=== PATIENT | female | born 1975 | race Caucasian/White ===

== ENCOUNTER → 2017-08-12 08:52 | Outpatient (REF) | payer MEDICAID, SELFPAY ==
[2017-08-12 14:26] LABS: Basophils # 0.1 K/mm3 (0-0.2); Basophils % 0.8 % (0.1-2.0); Eosinophils # 0.1 K/mm3 (0.0-0.4); Eosinophils % 1.4 % (0.1-12.0); Hematocrit 40.9 % (37.0-47.0); Hemoglobin 13.1 g/dL (12.2-16.2); Lymphocytes # 1.9 K/mm3 (0.7-4.5); Lymphocytes % 21.5 K/mm3 (10-50); Mean Platelet Volume 8.6 fl (7.4-10.4); Monocytes # 0.5 K/mm3 (0.1-1.0); Monocytes % 5.6 % (1.7-9.3); Neutrophils # 6.1 K/mm3 (1.8-7.8); Neutrophils % 70.6 % (37.0-80.0); Platelet Count 326 K/mm3 (142-424); Red Blood Count 4.09 M/mm3 (4.20-5.40); Red Cell Distribution Width 13.3 % (11.5-17.5); White Blood Count 8.6 K/mm3 (4.8-10.8)
[2017-08-12 15:54] LABS: Alanine Aminotransferase 23 U/L (12-78); Albumin Level 4.1 gm/dL (3.4-5.0); Albumin/Globulin Ratio 1.2 (1.1-1.8); Alkaline Phosphatase 65 U/L (46-116); Aspartate Amino Transferase 12 U/L (15-37); Bilirubin,Total 0.2 mg/dL (0.2-1.0); Blood Urea Nitrogen 15 mg/dL (7-18); Calcium 9.1 mg/dL (8.5-10.1); Carbon Dioxide 28 mmol/L (21.0-32.0); Chol/HDL Ratio 2.6 (1-3.5); Cholesterol 161 mg/dL (140-200); Estimated Glomerular Filt Rate 109 ml/min (>60); Free T4 (Free Thyroxine) 0.94 ng/dl (0.76-1.46); GFR (African American) 131 ML/MIN (>60); Globulin 3.3 gm/dl (1.3-3.2); Glucose 125 mg/dL (74-106); HDL Cholesterol 61 mg/dL (29-89); LDL Cholesterol 91 mg/dL (0-130); Thyroid Stimulating Hormone 1.17 uIU/ml (0.358-3.740); Total Protein,Serum 7.4 gm/dL (6.4-8.2); Triglycerides 43 mg/dL (30-200); VLDL Cholesterol 9 mg/dL (0-40)
[2017-08-12 16:04] LABS: Amphetamine/Metha Screen,Urine Negative ng/mL (<1000); Barbiturates Screen,Urine Negative ng/mL (<200); Benzodiazepines Screen,Urine Negative ng/mL (200); Cannabinoid Screen,Urine Negative ng/mL (<50); Cocaine Screen,Urine Negative ng/g (<300); Methadone Screen,Urine Negative ng/mL (<300); Opiate Screen,Urine Negative ng/mL (<300); Phencyclidine Screen,Urine Negative ng/mL (<25)
[2017-08-12 18:13] LABS: Anion Gap 13.4 mEq/L (5-15); Chloride 105 mmol/L (98-107); Potassium 4.4 mmoL/L (3.5-5.1); Sodium 142 mmol/L (136-145)
[2017-08-12 19:18] LABS: Hemoglobin A1C 5.9 % (0.0-7.0)
[2017-08-13 10:39] LABS: Vitamin D 25 Hydroxy 11.5 ng/mL (30.0-100.0)
[2017-08-14 05:18] LABS: Hep A Ab, IgM Negative (Negative); Hepatitis B Core Antibody IgM Negative (Negative); Hepatitis B Surface Antigen Negative (Negative)
[2017-08-14 13:21] LABS: Hepatitis C Antibody <0.1 s/co ratio (0.0-0.9); Microalbumin, Urine 9.5 ug/mL (Not Estab.)
== END ==
LOC: LAB 08:52
PROVIDERS: Visit Provider Nurse Practitioner Family
DX: R53.83 Other fatigue (principal); Z79.899 Other long term (current) drug therapy
CPT/HCPCS: 80053; 80061; 80074; 80305; 82043; 82652; 83036; 84439; 84443; 85025

== ENCOUNTER → 2017-09-24 14:18 | Outpatient (REF) | payer MEDICAID, SELFPAY ==
[2017-09-24 18:48] LABS: Amphetamine/Metha Screen,Urine Negative ng/mL (<1000); Barbiturates Screen,Urine Negative ng/mL (<200); Benzodiazepines Screen,Urine Negative ng/mL (200); Cannabinoid Screen,Urine Negative ng/mL (<50); Cocaine Screen,Urine Negative ng/g (<300); Methadone Screen,Urine Negative ng/mL (<300); Opiate Screen,Urine Negative ng/mL (<300); Phencyclidine Screen,Urine Negative ng/mL (<25)
== END ==
LOC: LAB 14:18
PROVIDERS: Visit Provider Nurse Practitioner Family
DX: R53.83 Other fatigue (principal); Z79.899 Other long term (current) drug therapy
CPT/HCPCS: 80305

== ENCOUNTER → 2018-01-14 10:52 | Outpatient (REF) | payer MEDICAID, SELFPAY ==
[2018-01-14 14:49] LABS: Hemoglobin A1C 6.6 % (0.0-7.0)
[2018-01-15 10:23] LABS: Creatinine, Urine 69.5 mg/dL (Not Estab.); Microalbumin, Urine 13.6 ug/mL (Not Estab.)
[2018-01-15 12:16] LABS: Hep A Ab, IgM Negative (Negative); Hepatitis B Core Antibody IgM Negative (Negative); Hepatitis B Surface Antigen Negative (Negative)
[2018-01-15 17:13] LABS: Hepatitis C Antibody 0.1 s/co ratio (0.0-0.9)
== END ==
LOC: LAB 10:52
PROVIDERS: Visit Provider Nurse Practitioner Family
DX: E11.9 Type 2 diabetes mellitus without complications (principal); Z20.5 Contact with and (suspected) exposure to viral hepatitis
CPT/HCPCS: 80074; 82043; 82570; 83036

== ENCOUNTER → 2020-10-21 09:24 | Outpatient (CLI) | payer MEDICAID, SELFPAY ==
[2020-10-21 13:52] LABS: Basophils # 0.1 K/mm3 (0-0.2); Basophils % 1.4 % (0.1-2.0); Eosinophils # 0.2 K/mm3 (0.0-0.4); Eosinophils % 2.1 % (0.1-12.0); Hematocrit 44.7 % (37.0-47.0); Hemoglobin 14.4 g/dL (12.2-16.2); Lymphocytes # 1.9 K/mm3 (0.7-4.5); Mean Corpuscular HGB Conc 32.2 g/dL (31.8-35.4); Mean Corpuscular Hemoglobin 29.8 pg (27.0-31.2); Mean Corpuscular Volume 92.6 fl (81-99); Mean Platelet Volume 8.1 fl (7.4-10.4); Monocytes # 0.3 K/mm3 (0.1-1.0); Monocytes % 3.8 % (1.7-9.3); Neutrophils # 4.9 K/mm3 (1.8-7.8); Neutrophils % 66.7 % (37.0-80.0); Platelet Count 314 K/mm3 (142-424); Red Blood Count 4.83 M/mm3 (4.20-5.40); Red Cell Distribution Width 13.8 % (11.5-17.5); White Blood Count 7.4 K/mm3 (4.8-10.8)
[2020-10-21 13:59] LABS: Alanine Aminotransferase 31 U/L (12-78); Albumin/Globulin Ratio 1.3 (1.1-1.8); Alkaline Phosphatase 106 U/L (38-126); Anion Gap 10.7 mEq/L (5-15); Aspartate Amino Transferase 48 U/L (14-36); Bilirubin,Total 0.3 mg/dl (0.2-1.3); Blood Urea Nitrogen 11 mg/dl (7-17); Calcium 9.4 mg/dl (8.4-10.2); Carbon Dioxide 28 mmol/L (22.0-30.0); Chloride 98 mmol/L (98-107); Chol/HDL Ratio 2.6 (1-3.5); Cholesterol 151 mg/dl (140-200); Estimated Glomerular Filt Rate 107 ml/min (>60); GFR (African American) 130 ML/MIN (>60); Glucose 379 mg/dl (74-100); HDL Cholesterol 57 mg/dl (40-60); Potassium 4.7 mmoL/L (3.5-5.1); Sodium 132 mmol/L (136-145); Triglycerides 194 mg/dl (30-150); VLDL Cholesterol 39 mg/dL (0-40)
[2020-10-21 14:11] LABS: Direct LDL Cholesterol 61.24 mg/dL (100-129)
[2020-10-21 14:15] LABS: 25-OH Vitamin D, Total 21.6 ng/mL (30-100)
[2020-10-21 14:23] LABS: Hemoglobin A1C 12.6 % (4.0-6.0)
[2020-10-21 14:30] LABS: Thyroid Stimulating Hormone 1.93 uIU/mL (0.465-4.68)
[2020-10-21 14:31] LABS: Prothrombin Time 10.4 seconds (10.1-12.5)
[2020-10-21 14:32] LABS: INR 0.87 (0.9-1.1)
[2020-10-22 11:31] LABS: Hep A Ab, IgM Negative (Negative); Hep A Ab, Total Negative (Negative); Hep B Core Ab, Total Negative (Negative)
[2020-10-22 11:34] LABS: HIV Screen 4th Generation wRfx Non Reactive (Non Reactive); Hep B Surface Ab, Qual Reactive (.); Hepatitis B Surface Antigen Negative (Negative); Hepatitis C Antibody >11.0 s/co ratio (0.0-0.9)
[2020-10-23 22:03] LABS: HCV Genotype Charge YES; Hepatitis C Genotype 3 (.)
== END ==
PROVIDERS: Visit Provider Physician Assistant
DX: B19.20 Unspecified viral hepatitis C without hepatic coma (principal); E11.9 Type 2 diabetes mellitus without complications; I10 Essential (primary) hypertension; E55.9 Vitamin D deficiency, unspecified; Z79.84 Long term (current) use of oral hypoglycemic drugs; Z11.4 Encounter for screening for human immunodeficiency virus [HIV]
CPT/HCPCS: 36415; 80053; 80061; 82043; 82306; 83036; 84443; 85025; 85610; 86703; 86704; 86706; 86708; 87340; 87380; 87522; 87902; G0432

== ENCOUNTER → 2021-03-09 07:19 | Outpatient (CLI) | payer MEDICAID, SELFPAY ==
[2021-03-09 13:11] LABS: Basophils # 0.1 K/mm3 (0-0.2); Basophils % 1.6 % (0.1-2.0); Eosinophils # 0.2 K/mm3 (0.0-0.4); Eosinophils % 2.9 % (0.1-12.0); Hematocrit 43.2 % (37.0-47.0); Hemoglobin 13.9 g/dL (12.2-16.2); Lymphocytes # 2.3 K/mm3 (0.7-4.5); Lymphocytes % 28.9 % (10-50); Mean Corpuscular HGB Conc 32.2 g/dL (31.8-35.4); Mean Corpuscular Hemoglobin 31.5 pg (27.0-31.2); Mean Corpuscular Volume 97.8 fl (81-99); Mean Platelet Volume 9.4 fl (7.4-10.4); Monocytes # 0.4 K/mm3 (0.1-1.0); Monocytes % 4.7 % (1.7-9.3); Neutrophils # 4.9 K/mm3 (1.8-7.8); Neutrophils % 61.9 % (37.0-80.0); Platelet Count 326 K/mm3 (142-424); Red Blood Count 4.42 M/mm3 (4.20-5.40)
[2021-03-09 13:14] LABS: Chloride 100 mmol/L (98-107); Potassium 4.3 mmoL/L (3.5-5.1); Sodium 135 mmol/L (136-145)
[2021-03-09 13:16] LABS: Alanine Aminotransferase 25 U/L (12-78); Alkaline Phosphatase 84 U/L (38-126); Aspartate Amino Transferase 35 U/L (14-36); Blood Urea Nitrogen 17 mg/dl (7-17); Estimated Glomerular Filt Rate 107 ml/min (>60); GFR (African American) 129 ML/MIN (>60)
[2021-03-09 13:17] LABS: Albumin Level 3.9 g/dl (3.5-5.0); Albumin/Globulin Ratio 1.3 (1.1-1.8); Anion Gap 14.3 mEq/L (5-15); Bilirubin,Total < 0.1 mg/dl (0.2-1.3); Calcium 8.8 mg/dl (8.4-10.2); Carbon Dioxide 25 mmol/L (22.0-30.0); Globulin 2.9 g/dL (1.3-3.2); Glucose 225 mg/dl (74-100); Total Protein,Serum 6.8 g/dl (6.3-8.2)
[2021-03-09 13:25] LABS: Prothrombin Time 10.4 seconds (10.1-12.5)
[2021-03-09 13:32] LABS: INR 0.87 (0.9-1.1)
[2021-03-10 13:09] LABS: HIV Screen 4th Generation wRfx Non Reactive (Non Reactive); Hep A Ab, IgM Negative (Negative); Hep A Ab, Total Negative (Negative); Hep B Core Ab, Total Negative (Negative); Hep B Surface Ab, Qual Reactive (.); Hepatitis B Surface Antigen Negative (Negative); Hepatitis C Antibody >11.0 s/co ratio (0.0-0.9)
[2021-03-14 18:16] LABS: ALT (SGPT) P5P 29 IU/L (0-40); Alpha 2-Macroglobulins, Qn 207 mg/dL (110-276); Apolipoprotein A-1 149 mg/dL (116-209); Bilirubin, Total 0.1 mg/dL (0.0-1.2); Fibrosis Score 0.07 (0.00-0.21); GGT 71 IU/L (0-60); Haptoglobin 163 mg/dL (42-296); Necroinflammat Activity Grade A0-No activity (.)
== END ==
PROVIDERS: Visit Provider Nurse Practitioner Family
DX: B19.20 Unspecified viral hepatitis C without hepatic coma (principal); Z11.4 Encounter for screening for human immunodeficiency virus [HIV]
CPT/HCPCS: 36415; 80053; 81596; 85025; 85610; 86703; 86704; 86706; 86708; 87340; 87380; 87522; G0432

== ENCOUNTER → 2021-03-27 19:38 | Outpatient (CLI) | payer MEDICAID, SELFPAY ==
[2021-03-27 20:40] LABS: Basophils # 0.1 K/mm3 (0-0.2); Eosinophils # 0.2 K/mm3 (0.0-0.4); Eosinophils % 2.3 % (0.1-12.0); Hematocrit 41.6 % (37.0-47.0); Hemoglobin 13.7 g/dL (12.2-16.2); Lymphocytes # 1.9 K/mm3 (0.7-4.5); Mean Corpuscular HGB Conc 32.8 g/dL (31.8-35.4); Mean Corpuscular Hemoglobin 30.8 pg (27.0-31.2); Mean Platelet Volume 8.8 fl (7.4-10.4); Monocytes # 0.4 K/mm3 (0.1-1.0); Monocytes % 5.5 % (1.7-9.3); Neutrophils % 62.2 % (37.0-80.0); Platelet Count 380 K/mm3 (142-424); Red Blood Count 4.43 M/mm3 (4.20-5.40); Red Cell Distribution Width 13.3 % (11.5-17.5); White Blood Count 6.5 K/mm3 (4.8-10.8)
[2021-03-27 21:19] LABS: Alanine Aminotransferase 24 U/L (12-78); Albumin Level 3.8 g/dl (3.5-5.0); Albumin/Globulin Ratio 1.2 (1.1-1.8); Alkaline Phosphatase 79 U/L (38-126); Anion Gap 9.6 mEq/L (5-15); Aspartate Amino Transferase 29 U/L (14-36); Bilirubin,Total 0.3 mg/dl (0.2-1.3); Blood Urea Nitrogen 9 mg/dl (7-17); Calcium 9.7 mg/dl (8.4-10.2); Carbon Dioxide 30 mmol/L (22.0-30.0); Chloride 99 mmol/L (98-107); Chol/HDL Ratio 2.4 (1-3.5); Cholesterol 113 mg/dl (140-200); Estimated Glomerular Filt Rate 170 ml/min (>60); GFR (African American) 206 ML/MIN (>60); Globulin 3.2 g/dL (1.3-3.2); Glucose 205 mg/dl (74-100); HDL Cholesterol 48 mg/dl (40-60); Potassium 4.6 mmoL/L (3.5-5.1); Sodium 134 mmol/L (136-145); Triglycerides 98 mg/dl (30-150); VLDL Cholesterol 20 mg/dL (0-40)
[2021-03-27 21:35] LABS: Erythrocyte Sedimentation Rate 21 mm/hr (0-20)
[2021-03-27 21:37] LABS: C-Reactive Protein 3.9 mg/L (0-4); Direct LDL Cholesterol 44.68 mg/dL (100-129)
[2021-03-27 22:06] LABS: 25-OH Vitamin D, Total 35.3 ng/mL (30-100)
[2021-03-27 22:20] LABS: Thyroid Stimulating Hormone 1.88 uIU/mL (0.465-4.68)
[2021-03-29 12:37] LABS: RA Latex Turbid. <10.0 IU/mL (0.0-13.9)
[2021-03-29 14:27] LABS: Anti-Centromere B Antibodies <0.2 AI (0.0-0.9); Anti-DNA (DS) Ab Qn <1 IU/mL (0-9); Anti-Jo-1 <0.2 AI (0.0-0.9); Anti-Smith Antibody <0.2 AI (0.0-0.9); Antichromatin Antibodies <0.2 AI (0.0-0.9); Antiscleroderma-70 Antibodies <0.2 AI (0.0-0.9); RNP Antibodies <0.2 AI (0.0-0.9); Sjogren's Anti-SS-A <0.2 AI (0.0-0.9); Sjogren's Anti-SS-B <0.2 AI (0.0-0.9)
[2021-03-31 00:08] LABS: Anti-Cyclic Citrullinated Pept 4 units (0-19)
== END ==
PROVIDERS: Visit Provider Physician Assistant
DX: M25.50 Pain in unspecified joint (principal); R60.9 Edema, unspecified; E66.9 Obesity, unspecified; Z68.35 Body mass index [BMI] 35.0-35.9, adult
CPT/HCPCS: 80053; 80061; 82306; 83036; 84443; 85025; 85651; 86140; 86200; 86225; 86235; 86431

== ENCOUNTER → 2021-06-29 07:20 | Outpatient (CLI) | payer MEDICAID, SELFPAY ==
[2021-06-29 14:44] LABS: Basophils # 0.1 K/mm3 (0-0.2); Basophils % 1.2 % (0.1-2.0); Eosinophils # 0.2 K/mm3 (0.0-0.4); Eosinophils % 2.7 % (0.1-12.0); Hemoglobin 13.3 g/dL (12.2-16.2); Lymphocytes # 1.8 K/mm3 (0.7-4.5); Lymphocytes % 29.5 % (10-50); Mean Corpuscular HGB Conc 32.6 g/dL (31.8-35.4); Mean Corpuscular Hemoglobin 30.4 pg (27.0-31.2); Mean Corpuscular Volume 93.4 fl (81-99); Mean Platelet Volume 8.8 fl (7.4-10.4); Monocytes # 0.3 K/mm3 (0.1-1.0); Monocytes % 5.2 % (1.7-9.3); Neutrophils # 3.7 K/mm3 (1.8-7.8); Neutrophils % 61.4 % (37.0-80.0); Platelet Count 317 K/mm3 (142-424); Red Blood Count 4.39 M/mm3 (4.20-5.40); Red Cell Distribution Width 13.9 % (11.5-17.5); White Blood Count 6.1 K/mm3 (4.8-10.8)
[2021-06-29 14:54] LABS: Prothrombin Time 10.3 seconds (10.1-12.5)
[2021-06-29 15:25] LABS: Alanine Aminotransferase 32 U/L (12-78); Albumin Level 3.8 g/dl (3.5-5.0); Albumin/Globulin Ratio 1.5 (1.1-1.8); Alkaline Phosphatase 69 U/L (38-126); Anion Gap 12.4 mEq/L (5-15); Aspartate Amino Transferase 51 U/L (14-36); Bilirubin,Total 0.2 mg/dl (0.2-1.3); Blood Urea Nitrogen 12 mg/dl (7-17); Calcium 8.9 mg/dl (8.4-10.2); Carbon Dioxide 26 mmol/L (22.0-30.0); Chloride 98 mmol/L (98-107); Estimated Glomerular Filt Rate 107 ml/min (>60); GFR (African American) 129 ML/MIN (>60); Globulin 2.5 g/dL (1.3-3.2); Glucose 266 mg/dl (74-100); Potassium 3.4 mmoL/L (3.5-5.1); Sodium 133 mmol/L (136-145); Total Protein,Serum 6.3 g/dl (6.3-8.2)
[2021-06-29 16:39] LABS: Hemoglobin A1C 11.1 % (4.0-6.0)
[2021-06-30 12:20] LABS: HIV Screen 4th Generation wRfx Non Reactive (Non Reactive); Hep A Ab, IgM Negative (Negative); Hep A Ab, Total Negative (Negative); Hep B Core Ab, Total Negative (Negative); Hep B Surface Ab, Qual Reactive (.); Hepatitis B Surface Antigen Negative (Negative); Hepatitis C Antibody >11.0 s/co ratio (0.0-0.9)
[2021-07-02 03:38] LABS: ALT (SGPT) P5P 29 IU/L (0-40); Alpha 2-Macroglobulins, Qn 205 mg/dL (110-276); Apolipoprotein A-1 154 mg/dL (116-209); Bilirubin, Total 0.1 mg/dL (0.0-1.2); Fibrosis Score 0.07 (0.00-0.21); GGT 69 IU/L (0-60); Haptoglobin 138 mg/dL (42-296); Necroinflammat Activity Grade A0-No activity (.)
[2021-07-05 13:11] LABS: HCV Genotype Charge YES; Hepatitis C Genotype 3 (.)
== END ==
PROVIDERS: Visit Provider Nurse Practitioner Family
DX: B19.20 Unspecified viral hepatitis C without hepatic coma (principal); E11.9 Type 2 diabetes mellitus without complications; Z79.84 Long term (current) use of oral hypoglycemic drugs; Z11.4 Encounter for screening for human immunodeficiency virus [HIV]
CPT/HCPCS: 36415; 80053; 81596; 83036; 85025; 85610; 86703; 86704; 86706; 86708; 87340; 87380; 87522; 87902; G0432

== ENCOUNTER → 2021-07-27 07:49 | Outpatient (CLI) | payer MEDICAID, SELFPAY ==
[2021-07-27 16:17] LABS: Urine Pregnancy, HCG Qual. Negative (Negative)
== END ==
PROVIDERS: Visit Provider Nurse Practitioner Family
DX: B19.20 Unspecified viral hepatitis C without hepatic coma (principal)
CPT/HCPCS: 81025

== ENCOUNTER → 2021-09-26 10:51 | Outpatient (CLI) | payer MEDICAID, SELFPAY ==
[2021-09-26 14:40] LABS: Chloride 98 mmol/L (98-107); Potassium 4.9 mmoL/L (3.5-5.1); Sodium 132 mmol/L (136-145)
[2021-09-26 14:42] LABS: Alanine Aminotransferase 21 U/L (12-78); Aspartate Amino Transferase 26 U/L (14-36); Blood Urea Nitrogen 14 mg/dl (7-17); Estimated Glomerular Filt Rate 107 ml/min (>60); GFR (African American) 129 ML/MIN (>60)
[2021-09-26 14:43] LABS: Albumin Level 3.7 g/dl (3.5-5.0); Albumin/Globulin Ratio 1.3 (1.1-1.8); Alkaline Phosphatase 76 U/L (38-126); Anion Gap 9.9 mEq/L (5-15); Bilirubin,Total 0.3 mg/dl (0.2-1.3); Calcium 8.6 mg/dl (8.4-10.2); Carbon Dioxide 29 mmol/L (22.0-30.0); Globulin 2.9 g/dL (1.3-3.2); Glucose 356 mg/dl (74-100); Total Protein,Serum 6.6 g/dl (6.3-8.2)
[2021-09-28 03:37] LABS: Hepatitis C Antibody >11.0 s/co ratio (0.0-0.9)
== END ==
PROVIDERS: Visit Provider Nurse Practitioner Family
DX: B18.2 Chronic viral hepatitis C (principal)
CPT/HCPCS: 36415; 80053; 87380; 87522; 87902

== ENCOUNTER → 2022-02-20 08:22 | Outpatient (CLI) | payer MEDICAID, SELFPAY ==
[2022-02-20 18:20] LABS: Basophils # 0.1 K/mm3 (0-0.2); Basophils % 1.2 % (0.1-2.0); Eosinophils # 0.2 K/mm3 (0.0-0.4); Eosinophils % 2.8 % (0.1-12.0); Hematocrit 43.1 % (37.0-47.0); Hemoglobin 13.5 g/dL (12.2-16.2); Lymphocytes # 1.7 K/mm3 (0.7-4.5); Lymphocytes % 22.2 % (10-50); Mean Corpuscular HGB Conc 31.4 g/dL (31.8-35.4); Mean Corpuscular Hemoglobin 30.7 pg (27.0-31.2); Mean Corpuscular Volume 97.8 fl (81-99); Mean Platelet Volume 10.3 fl (7.4-10.4); Monocytes # 0.4 K/mm3 (0.1-1.0); Monocytes % 5.3 % (1.7-9.3); Neutrophils # 5.1 K/mm3 (1.8-7.8); Neutrophils % 68.5 % (37.0-80.0); Platelet Count 403 K/mm3 (142-424); Red Cell Distribution Width 13.7 % (11.5-17.5); White Blood Count 7.4 K/mm3 (4.8-10.8)
[2022-02-20 18:47] LABS: Chloride 101 mmol/L (98-107); Potassium 4.9 mmoL/L (3.5-5.1); Sodium 138 mmol/L (136-145)
[2022-02-20 18:49] LABS: Blood Urea Nitrogen 15 mg/dl (7-17); Estimated Glomerular Filt Rate 106 ml/min (>60); GFR (African American) 129 ML/MIN (>60)
[2022-02-20 18:50] LABS: Alanine Aminotransferase 23 U/L (12-78); Albumin Level 4.3 g/dl (3.5-5.0); Albumin/Globulin Ratio 1.3 (1.1-1.8); Alkaline Phosphatase 89 U/L (38-126); Anion Gap 15.9 mEq/L (5-15); Aspartate Amino Transferase 31 U/L (14-36); Carbon Dioxide 26 mmol/L (22.0-30.0); Cholesterol 164 mg/dl (140-200); Globulin 3.2 g/dL (1.3-3.2); Total Protein,Serum 7.5 g/dl (6.3-8.2); Triglycerides 132 mg/dl (30-150); VLDL Cholesterol 26 mg/dL (0-40)
[2022-02-20 18:51] LABS: Calcium 10.2 mg/dl (8.4-10.2); Chol/HDL Ratio 2.7 (1-3.5); Glucose 232 mg/dl (74-100); HDL Cholesterol 61 mg/dl (40-60)
[2022-02-20 18:53] LABS: Bilirubin,Total < 0.1 mg/dl (0.2-1.3)
[2022-02-20 19:08] LABS: 25-OH Vitamin D, Total 21.3 ng/mL (30-100)
[2022-02-20 19:21] LABS: Thyroid Stimulating Hormone 0.33 uIU/mL (0.465-4.68)
[2022-02-20 20:45] LABS: Microalbumin < 6.000 mg/L (0-16.7)
[2022-02-20 20:51] LABS: Vitamin B12 345 pg/mL (239-931)
[2022-02-22 08:29] LABS: Direct LDL Cholesterol 78 mg/dL (100-129)
== END ==
PROVIDERS: PCP Physician Assistant; Visit Provider Physician Assistant
DX: E11.9 Type 2 diabetes mellitus without complications (principal); E55.9 Vitamin D deficiency, unspecified; Z79.4 Long term (current) use of insulin; Z79.899 Other long term (current) drug therapy
CPT/HCPCS: 80053; 80061; 82043; 82306; 82607; 83036; 84443; 84681; 85025

== ENCOUNTER → 2022-02-27 10:25 | Outpatient (CLI) | payer MEDICAID, SELFPAY ==
--- NOTE | 2022-02-27 10:29 | CT_ITS ---
FINAL REPORT CLINICAL HISTORY: umbilical hernia with pain FINDINGS: Axial CT images of the abdomen and pelvis were obtained without intravenous contrast. Coronal reformatted images were also obtained.This study was performed with techniques to keep radiation doses as low as reasonably achievable (ALARA). Individualized dose reduction techniques using automated exposure control or adjustment of mA and/or kV according to the patient's size were employed. Abdomen: The lung bases are clear. There is no evidence of renal stone or hydronephrosis. There has been cholecystectomy. The liver, spleen and pancreas have an unremarkable, unenhanced appearance. A 16 mm right adrenal mass is consistent with a myelolipoma. No inflammatory process is identified. There is an umbilical hernia containing fat only. Hernia sac measures 44 mm with the orifice measuring 26 mm in transverse dimensions. There is mild vascular calcification. Pelvis: Images of the pelvis reveal no evidence of ureteral dilation or ureteral stone.No mass or abnormal fluid collection is identified. The appendix is normal. There is degenerative change of the lumbar spine with 10 mm of anterolisthesis of L4 on L5. IMPRESSION: Umbilical hernia containing fat only. No acute intra-abdominal process. Reviewed, Interpreted and Dictated by Basil Corrales III, MD Transcribed by Miguel Palma Authenticated and [facility]
== END ==
PROVIDERS: PCP Physician Assistant; Visit Provider Physician Assistant
DX: K42.9 Umbilical hernia without obstruction or gangrene (principal)
CPT/HCPCS: 74176

== ENCOUNTER → 2022-12-05 14:20 | Outpatient (CLI) | payer MEDICAID, SELFPAY ==
[2022-12-05 19:52] LABS: Basophils % 0.4 % (0.1-2.0); Eosinophils # 0.2 K/mm3 (0.0-0.4); Hematocrit 42.4 % (37.0-47.0); Lymphocytes # 2.2 K/mm3 (0.7-4.5); Lymphocytes % 26.6 % (10-50); Mean Corpuscular Hemoglobin 30.4 pg (27.0-31.2); Mean Corpuscular Volume 92.3 fl (81-99); Mean Platelet Volume 9.5 fl (7.4-10.4); Monocytes # 0.5 K/mm3 (0.1-1.0); Monocytes % 5.9 % (1.7-9.3); Neutrophils # 5.4 K/mm3 (1.8-7.8); Neutrophils % 65.1 % (37.0-80.0); Platelet Count 331 K/mm3 (142-424); Red Blood Count 4.59 M/mm3 (4.20-5.40); Red Cell Distribution Width 14.1 % (11.5-17.5); White Blood Count 8.3 K/mm3 (4.8-10.8)
[2022-12-05 19:57] LABS: Alanine Aminotransferase 47 U/L (12-78); Albumin Level 4.3 g/dl (3.5-5.0); Albumin/Globulin Ratio 1.4 (1.1-1.8); Alkaline Phosphatase 85 U/L (38-126); Anion Gap 15.1 mEq/L (5-15); Aspartate Amino Transferase 49 U/L (14-36); Blood Urea Nitrogen 10 mg/dl (7-17); Calcium 8.8 mg/dl (8.4-10.2); Carbon Dioxide 28 mmol/L (22.0-30.0); Chloride 100 mmol/L (98-107); Chol/HDL Ratio 2.4 (1-3.5); Cholesterol 167 mg/dl (140-200); Estimated Glomerular Filt Rate 106 ml/min (>60); GFR (African American) 129 ML/MIN (>60); Glucose 99 mg/dl (74-100); HDL Cholesterol 69 mg/dl (40-60); Potassium 4.1 mmoL/L (3.5-5.1); Sodium 139 mmol/L (136-145); Total Protein,Serum 7.3 g/dl (6.3-8.2); Triglycerides 203 mg/dl (30-150); VLDL Cholesterol 41 mg/dL (0-40)
[2022-12-05 19:59] LABS: Bilirubin,Total 0.1 mg/dl (0.2-1.3)
[2022-12-05 20:08] LABS: Direct LDL Cholesterol 69.93 mg/dL (100-129)
[2022-12-05 20:12] LABS: Creatinine,Urine Random 137 mg/dL (Not Estab.)
[2022-12-05 20:14] LABS: Microalbumin/Creatinine Ratio 32.2
[2022-12-05 20:15] LABS: 25-OH Vitamin D, Total 27.2 ng/mL (30-100)
[2022-12-05 20:28] LABS: Thyroid Stimulating Hormone 1.82 uIU/mL (0.465-4.68)
[2022-12-05 21:03] LABS: Hemoglobin A1C 9.2 % (4.0-6.0)
== END ==
PROVIDERS: PCP Physician Assistant; Visit Provider Physician Assistant
DX: E11.9 Type 2 diabetes mellitus without complications (principal); I10 Essential (primary) hypertension; E55.9 Vitamin D deficiency, unspecified; Z79.4 Long term (current) use of insulin; Z79.899 Other long term (current) drug therapy
CPT/HCPCS: 80053; 80061; 82043; 82306; 82570; 83036; 84443; 85025

== ENCOUNTER 2023-09-11 15:12 | Outpatient (CLI) | payer MEDICAID, SELFPAY ==
--- NOTE | 2023-09-11 15:13 | CA_ITS ---
FINAL REPORT TECHNIQUE: Multiple transverse and longitudinal images were performed of the right femoral-popliteal deep venous system with augmentation and compression maneuvers. CLINICAL HISTORY: RLE edema x 3 days. No trauma, no pain. HTN, obesity, HLD, DM, obesity. 81 mg ASA daily. FINDINGS: Right lower extremity duplex ultrasound demonstrates normal flow in the deep venous system. There is no abnormal echogenicity to suggest thrombus. There is normal compression and augmentation. IMPRESSION: No evidence of right DVT. Reviewed, Interpreted and Dictated by Manolo Mason MD Transcribed by Joslyn Davies Authenticated and [facility]
== END 2023-09-11 23:59 ==
PROVIDERS: PCP Physician Assistant; Visit Provider Physician Assistant
DX: M79.661 Pain in right lower leg (principal); M79.89 Other specified soft tissue disorders
CPT/HCPCS: 93971

== ENCOUNTER 2023-10-02 16:15 | Outpatient (CLI) | payer MEDICAID, SELFPAY ==
[2023-10-02 18:26] LABS: Basophils # 0.1 K/mm3 (0-0.2); Basophils % 0.6 % (0.1-2.0); Eosinophils # 0.2 K/mm3 (0.0-0.4); Eosinophils % 1.7 % (0.1-12.0); Hematocrit 44.1 % (37.0-47.0); Hemoglobin 13.9 g/dL (12.2-16.2); Lymphocytes # 3.9 K/mm3 (0.7-4.5); Lymphocytes % 29.4 % (10-50); Mean Corpuscular HGB Conc 31.5 g/dL (31.8-35.4); Mean Corpuscular Hemoglobin 31.4 pg (27.0-31.2); Mean Corpuscular Volume 99.7 fl (81-99); Mean Platelet Volume 8.7 fl (7.4-10.4); Monocytes # 0.6 K/mm3 (0.1-1.0); Monocytes % 4.5 % (1.7-9.3); Neutrophils # 8.6 K/mm3 (1.8-7.8); Neutrophils % 63.8 % (37.0-80.0); Platelet Count 415 K/mm3 (142-424); Red Blood Count 4.42 M/mm3 (4.20-5.40); Red Cell Distribution Width 14.5 % (11.5-17.5); White Blood Count 13.4 K/mm3 (4.8-10.8)
[2023-10-02 18:32] LABS: Creatinine,Urine Random 14 mg/dL (Not Estab.)
[2023-10-02 18:34] LABS: Microalbumin/Creatinine Ratio 51.4
[2023-10-02 18:39] LABS: Alanine Aminotransferase 47 U/L (12-78); Albumin Level 4.3 g/dl (3.5-5.0); Albumin/Globulin Ratio 1.5 (1.1-1.8); Alkaline Phosphatase 141 U/L (38-126); Anion Gap 11.9 mEq/L (5-15); Aspartate Amino Transferase 62 U/L (14-36); Bilirubin,Total 0.4 mg/dl (0.2-1.3); Blood Urea Nitrogen 11 mg/dl (7-17); Calcium 9.2 mg/dl (8.4-10.2); Carbon Dioxide 29 mmol/L (22.0-30.0); Chloride 105 mmol/L (98-107); Chol/HDL Ratio 2.8 (1-3.5); Cholesterol 127 mg/dl (140-200); Estimated Glomerular Filt Rate 106 ml/min (>60); GFR (African American) 128 ML/MIN (>60); Globulin 2.9 g/dL (1.3-3.2); Glucose 63 mg/dl (74-100); HDL Cholesterol 46 mg/dl (40-60); Potassium 3.9 mmoL/L (3.5-5.1); Sodium 142 mmol/L (136-145); Total Protein,Serum 7.2 g/dl (6.3-8.2); Triglycerides 87 mg/dl (30-150); VLDL Cholesterol 17 mg/dL (0-40)
[2023-10-02 18:55] LABS: Direct LDL Cholesterol 59.39 mg/dL (100-129)
[2023-10-02 19:04] LABS: Hemoglobin A1C 6.3 % (4.0-6.0)
[2023-10-02 19:07] LABS: Thyroid Stimulating Hormone 1.92 uIU/mL (0.465-4.68)
[2023-10-02 19:26] LABS: Vitamin B12 492 pg/mL (239-931)
[2023-10-02 20:51] LABS: Ferritin 30.4 ng/ml (6.24-137)
[2023-10-02 21:48] LABS: 25-OH Vitamin D, Total 14.7 ng/mL (30-100)
== END 2023-10-02 23:59 | disposition home or self-care (01) ==
LOC: LAB.DROPOF 10-03 16:15
PROVIDERS: PCP Physician Assistant; Visit Provider Physician Assistant
DX: E11.49 Type 2 diabetes mellitus with other diabetic neurological complication (principal); E55.9 Vitamin D deficiency, unspecified; I50.9 Heart failure, unspecified; Z68.32 Body mass index [BMI] 32.0-32.9, adult; Z98.84 Bariatric surgery status; Z79.4 Long term (current) use of insulin; Z79.84 Long term (current) use of oral hypoglycemic drugs
CPT/HCPCS: 80053; 80061; 82043; 82306; 82570; 82607; 82728; 83036; 84443; 85025

== ENCOUNTER 2023-10-25 08:29 | Outpatient (CLI) | payer MEDICAID, SELFPAY ==
--- NOTE | 2023-10-25 08:30 | CA_ITS ---
APPROVED REPORT EXAM: Comprehensive 2D, Doppler, and color-flow Echocardiogram Clerical Support Specialist: CAROLE Holt, RVS Ht: 5 ft 7 in Wt: 230lbs BSA: 2.15 BP: 160/93 mmHg Indications: HTN, Abn EKG, Edema, Obesity, Hep-c, DM 2D Dimensions Left Atrium 4.56 cm LA Volume 78.50 mL LA Volume Index 35.70 mL/m2 (M/F) 16-34 M-Mode Dimensions RVDd 2.55 cm (0.9-2.6) LA Diam 4.04 cm (1.9-4.0) LVDd 5.66 cm (3.5-5.7) LVDs 3.80 cm (3.5-5.7) IVSd 1.10 cm (0.6-1.1) PWd 1.06 cm (0.6-1.1) EF (Teich) 60.60% EPSs 0.88 cm FS 32.90% EDV (Teich) 157.50 mL TAPSE 2.52 (<1.7) ESV (Teich) 62.00 mL LV Diastology E Decel Time 200 (160-240 msec) E/A Ratio 1.90 MED A' 9.70 cm/s LAT A' 7.20 cm/s Aortic Valve APPLE Index 1.00 cm2/m2 AoV Peak Nikolay. 121.0 (50-130 cm/s) AO Peak GR. 5.90 mmHg AO Mean GR. 3.00 (<5 mmHg) AO VTI 26.1 (18-25 cm) APPLE (VTI) 2.19 (2.5-4.5 cm2) Mitral Valve MV A Velocity 48.0 (40-130 cm/s) E/A Ratio 1.90 MV Mean Gr. 1.40 (<2mmHg) MV PHT 40.0 ms Pulmonary Valve PV Peak Velocity 66.0 (50-150 cm/s) Tricuspid Valve TR P. Velocity 210.00 cm/s RAP Estimate 10.00 mmHg RVSP 27.70 mmHg Left Ventricle The left ventricle is normal size. The left ventricular systolic function is low normal. There is normal left ventricular wall thickness. There is borderline global hypokinesis present. The left ventricular diastolic function is normal. LVEF is 50%. Right Ventricle The right ventricle is normal size. The right ventricular systolic function is normal. Atria Left atrium is mildly dilated. The right atrium size is normal. The interatrial septum is not well-visualized. Aortic Valve The aortic valve opens well. There is no aortic valvular stenosis. No aortic regurgitation is present. Mitral Valve The mitral valve is normal in structure. No evidence of mitral valve stenosis. Mild tricuspid regurgitation. Tricuspid Valve The tricuspid valve leaflets are thin and pliable. Trace tricuspid regurgitation. There is insufficient TR jet to estimate RVSP. Pulmonic Valve The pulmonary valve is normal in structure. Trace pulmonic regurgitation. Great Vessels The aortic root is normal in size. The ascending aorta is not well-visualized. IVC is normal in size and collapses >50% with inspiration. Pericardium There is no pericardial effusion. Other Information Study Quality: Fair Conclusion Borderline global hypokinesis with low normal LV systolic function (LVEF 50%). Mild LA dilation. Mild MR. In the setting of borderline global hypokinesis, further evaluation to accurately estimate LVEF is recommended with outpatient cardiac MRI (cardiomyopathy protocol). Electronically signed by : Ml Dempsey MD 10/28/2023 13:28:17
--- NOTE | 2023-10-25 08:30 | CA_ITS ---
FINAL REPORT TECHNIQUE: Grayscale, color Doppler and duplex Doppler ultrasound of the kidneys, aorta and renal arteries was performed. Multiple velocities were measured. CLINICAL HISTORY: HTN/abnl ecg, Obesity, DM, Hep-C COMPARISON: None FINDINGS: Aorta velocity: 93.2 cm/sec Right kidney: 11.5 cm. No evidence of hydronephrosis or mass. Right intrarenal RI: 0.73 Right renal artery velocity: 160 cm/sec. Right RAR (Renal artery-Aortic Ratio): 1.7 Left Kidney: 11.2 cm. No evidence of hydronephrosis or mass. Left intrarenal RI: 0.71 Left renal artery velocity: 181 cm/sec. Left RAR (Renal Artery-Aortic Ratio): 1.9 IMPRESSION: No evidence of significant renal artery stenosis in the right renal artery. Less than 60% stenosis in the left renal artery CT angiogram or postcontrast MR angiogram is suggested for evaluation of possible renal artery stenosis. Reviewed, Interpreted and Dictated by Basil Corrales III, MD Transcribed by Kathleen Corona Authenticated and [facility]
--- NOTE | 2023-10-25 09:17 | US_ITS ---
FINAL REPORT CLINICAL HISTORY: R94.31 - Abnormal electrocardiogram ECG EKG COMPARISON: None FINDINGS: RENAL ULTRASOUND: The right kidney measures 12.8 cm in sagittal length. No evidence of hydronephrosis or mass is seen. The left kidney measures 11.8 cm in sagittal length. No evidence of hydronephrosis or mass is seen. IMPRESSION: Unremarkable renal ultrasound. Reviewed, Interpreted and Dictated by Basil Corrales III, MD Transcribed by Kathleen Corona Authenticated and [facility]
== END 2023-10-25 23:59 | disposition home or self-care (01) ==
LOC: RT 08:30
PROVIDERS: PCP Physician Assistant; Visit Provider Nurse Practitioner
DX: R94.31 Abnormal electrocardiogram [ECG] [EKG]; I50.9 Heart failure, unspecified; E11.9 Type 2 diabetes mellitus without complications; Z79.4 Long term (current) use of insulin; I70.1 Atherosclerosis of renal artery; F17.210 Nicotine dependence, cigarettes, uncomplicated
CPT/HCPCS: 76770; 93306; 93976

== ENCOUNTER 2024-01-22 14:26 | Outpatient (CLI) | payer MEDICAID, SELFPAY ==
[2024-01-22 15:49] LABS: Anion Gap 11.6 mEq/L (5-15); Blood Urea Nitrogen 10 mg/dl (7-17); Calcium 9.4 mg/dl (8.4-10.2); Carbon Dioxide 32 mmol/L (22.0-30.0); Chloride 103 mmol/L (98-107); Estimated Glomerular Filt Rate 131 ml/min (>60); GFR (African American) 158 ML/MIN (>60); Glucose 122 mg/dl (74-100); Potassium 4.6 mmoL/L (3.5-5.1); Sodium 142 mmol/L (136-145)
== END 2024-01-22 23:59 | disposition home or self-care (01) ==
LOC: LAB 14:27
PROVIDERS: PCP Physician Assistant; Visit Provider Internal Medicine
DX: I50.21 Acute systolic (congestive) heart failure (principal); E11.9 Type 2 diabetes mellitus without complications; Z79.4 Long term (current) use of insulin; Z79.84 Long term (current) use of oral hypoglycemic drugs; F17.290 Nicotine dependence, other tobacco product, uncomplicated
CPT/HCPCS: 36415; 80048

== ENCOUNTER → 2024-02-28 12:37 | Outpatient (CLI) | payer MEDICAID, SELFPAY | LOC: SL 12:38 | PROVIDERS: PCP Internal Medicine; Visit Provider Internal Medicine | DX: G47.33 Obstructive sleep apnea (adult) (pediatric) (principal); G47.36 Sleep related hypoventilation in conditions classified elsewhere | CPT/HCPCS: G0399 ==

== ENCOUNTER 2024-04-08 18:39 | Outpatient (CLI) | payer MEDICAID, SELFPAY ==
[2024-04-08 19:06] LABS: Basophils # 0.1 K/mm3 (0-0.2); Eosinophils # 0.2 K/mm3 (0.0-0.4); Hematocrit 41.9 % (37.0-47.0); Hemoglobin 13.6 g/dL (12.2-16.2); Lymphocytes % 28.8 % (10-50); Mean Corpuscular HGB Conc 32.5 g/dL (31.8-35.4); Mean Corpuscular Hemoglobin 31.6 pg (27.0-31.2); Mean Corpuscular Volume 97.2 fl (81-99); Mean Platelet Volume 8.7 fl (7.4-10.4); Monocytes # 0.4 K/mm3 (0.1-1.0); Monocytes % 5.2 % (1.7-9.3); Neutrophils # 4.3 K/mm3 (1.8-7.8); Platelet Count 340 K/mm3 (142-424); Red Blood Count 4.31 M/mm3 (4.20-5.40); Red Cell Distribution Width 13.4 % (11.5-17.5); White Blood Count 6.9 K/mm3 (4.8-10.8)
[2024-04-08 19:19] LABS: Albumin Level 4.3 g/dl (3.5-5.0); Chloride 102 mmol/L (98-107); Sodium 139 mmol/L (136-145)
[2024-04-08 19:20] LABS: Potassium 4.5 mmoL/L (3.5-5.1)
[2024-04-08 19:22] LABS: Alanine Aminotransferase 41 U/L (12-78); Albumin/Globulin Ratio 1.4 (1.1-1.8); Anion Gap 11.5 mEq/L (5-15); Aspartate Amino Transferase 43 U/L (14-36); Blood Urea Nitrogen 6 mg/dl (7-17); Carbon Dioxide 30 mmol/L (22.0-30.0); Estimated Glomerular Filt Rate 130 ml/min (>60); GFR (African American) 157 ML/MIN (>60); Total Protein,Serum 7.3 g/dl (6.3-8.2)
[2024-04-08 19:23] LABS: Alkaline Phosphatase 119 U/L (38-126); Bilirubin,Total 0.4 mg/dl (0.2-1.3); Calcium 9.2 mg/dl (8.4-10.2); Chol/HDL Ratio 2.5 (1-3.5); Cholesterol 130 mg/dl (140-200); Glucose 112 mg/dl (74-100); HDL Cholesterol 51 mg/dl (40-60); Triglycerides 79 mg/dl (30-150); VLDL Cholesterol 16 mg/dL (0-40)
[2024-04-08 19:34] LABS: Direct LDL Cholesterol 66.57 mg/dL (100-129)
[2024-04-08 19:54] LABS: Thyroid Stimulating Hormone 1.07 uIU/mL (0.465-4.68)
[2024-04-08 21:31] LABS: HIV (1&2) Antibody Rapid NONREACTIVE (NONREACTIVE)
[2024-04-08 22:06] LABS: Vitamin B12 653 pg/mL (239-931)
[2024-04-11 19:08] LABS: HCV Ab Reactive (Non Reactive)
== END 2024-04-08 23:59 | disposition home or self-care (01) ==
LOC: LAB.DROPOF 18:40
PROVIDERS: PCP Family Medicine; Visit Provider Family Medicine
DX: E11.49 Type 2 diabetes mellitus with other diabetic neurological complication (principal); I10 Essential (primary) hypertension; Z11.4 Encounter for screening for human immunodeficiency virus [HIV]; Z72.0 Tobacco use; Z79.85 Long-term (current) use of injectable non-insulin antidiabetic drugs
CPT/HCPCS: 80050; 80053; 80061; 82607; 84443; 85025; 86803; 87389

== ENCOUNTER 2024-04-24 07:30 | Outpatient (CLI) | payer MEDICAID, SELFPAY ==
--- NOTE | 2024-04-24 07:30 | MM_ITS ---
PROCEDURE INFORMATION: Exam: Bilateral Screening 3D Mammography Exam date and time: 04/24/2024 7:20 AM Age: 49 years old Clinical indication: Screening examination TECHNIQUE: Imaging protocol: Bilateral Screening tomosynthesis and 2D mammography including computer-aided detection (CAD) when performed. COMPARISON: DIG MAMMO BILAT SCREENING 01/23/2013 11:09 AM FINDINGS: MAMMOGRAPHY: Breast composition: There are scattered areas of fibroglandular density. Mass: None. Architectural distortion: None. Calcifications: No suspicious calcifications. Asymmetric density: None. Skin thickening: None. Axillary adenopathy: None. IMPRESSION: No mammographic evidence of malignancy. Annual screening is recommended unless otherwise clinically indicated. ASSESSMENT: BI-RADS Category 1: Negative.
== END 2024-04-24 23:59 | disposition home or self-care (01) ==
LOC: RAD 07:30
PROVIDERS: PCP Family Medicine; Visit Provider Family Medicine
DX: Z12.31 Encounter for screening mammogram for malignant neoplasm of breast (principal)
CPT/HCPCS: 77063; 77067

== ENCOUNTER 2024-05-28 18:06 | Outpatient (CLI) | payer MEDICAID, SELFPAY ==
--- NOTE | 2024-05-28 18:14 | XR_ITS ---
PROCEDURE INFORMATION: Exam: XR Right Hip Exam date and time: 05/28/2024 6:04 PM Age: 49 years old Clinical indication: Hip pain; Right hip; Additional info: RT hip popped. Pain. TECHNIQUE: Imaging protocol: Radiologic exam of the right hip. Views: 2 or 3 views hip with pelvis when performed. COMPARISON: CT ABDOMEN PELVIS WO CON 02/27/2022 10:44 AM FINDINGS: Bones/joints: Moderate osteophytosis and degenerative changes involve the bilateral femoroacetabular joints, greater on the right with subchondral cystic changes of the acetabula. No evidence of acute osseous abnormality. Soft tissues: Unremarkable. IMPRESSION: 1. Moderate osteophytosis and degenerative changes involve the bilateral femoroacetabular joints, greater on the right with subchondral cystic changes of the acetabula. 2. No evidence of acute osseous abnormality.
== END 2024-05-28 23:59 | disposition home or self-care (01) ==
LOC: RAD 18:08
PROVIDERS: PCP Family Medicine; Visit Provider Family Medicine
DX: M25.551 Pain in right hip (principal); S79.911A Unspecified injury of right hip, initial encounter
CPT/HCPCS: 73502

== ENCOUNTER → 2024-06-23 20:27 | Outpatient (CLI) | payer MEDICAID, SELFPAY | LOC: SL 20:28 | PROVIDERS: PCP Family Medicine; Visit Provider Internal Medicine | DX: G47.33 Obstructive sleep apnea (adult) (pediatric) (principal) | CPT/HCPCS: 95811 ==

== ENCOUNTER 2024-11-23 19:53 | Inpatient (IN) | payer MEDICAID, SELFPAY ==
[2024-11-23] VITALS (33 sets, daily range): BP systolic 120–212; BP diastolic 77–122; PULSE 25–124; RESP 16–35; TEMP 36.6; O2SAT 88–97; BMI 33.2; BMI 34.7
--- NOTE | 2024-11-23 19:51 | XR_ITS ---
PROCEDURE INFORMATION: Exam: XR Chest Exam date and time: 11/23/2024 8:09 PM Age: 49 years old Clinical indication: Shortness of breath; Additional info: SOB TECHNIQUE: Imaging protocol: Radiologic exam of the chest. Views: 1 view. COMPARISON: No relevant prior studies available. FINDINGS: Lungs: There is moderate pulmonary vascular congestion. There are diffuse interstitial opacities bilaterally. Pleural spaces: Unremarkable. No pleural effusion. No pneumothorax. Heart/Mediastinum: The heart is enlarged. Bones/joints: Unremarkable. IMPRESSION: Cardiomegaly, pulmonary vascular congestion and interstitial opacities, suspicious for congestive heart failure.
--- NOTE | 2024-11-23 19:56 | ECG_ITS ---
APPROVED REPORT Exam: Resting ECG HR:128 bpm ECG Measurements Heart Rate 128 AXES HI 144 P 82 QRSd 90 QRS 77 QT 300 T 62 QTc 376 Conclusion SINUS TACHYCARDIA WITH FREQUENT VENTRICULAR PREMATURE COMPLEXES ABNORMAL RHYTHM ECG UNCONFIRMED REPORT Electronically signed by : MARIANNE THEODORE, 11/26/2024 01:18:32
[2024-11-23] MEDS: NITROGLYCERIN IN 5 % DEXTROSE 250 ML 3 MG IV (19:57)
[2024-11-23 19:58] LABS: VBG Base Excess -5.6 mmol/L (-2.4-2.3); VBG HCO3 22.1 mmol/L (23-30); VBG Oxygen Saturation 81.4 % (50-70); VBG PH 7.22 mmol/L (7.31-7.41); VBG PO2 53.4 mmol/L (28-40); VBG Total CO2 23.8 mmol/L (23-27)
--- NOTE | 2024-11-23 20:03 | ED_ITS ---
Discharge Plan Disposition Patient Disposition: Admitted Prescriptions Prescriptions: No Action alcohol swabs [Alcohol Prep Pads] Pads, Medicated topical nystatin 100,000 unit/gram powder 1 applic topical BID PRN buprenorphine-naloxone 8-2 mg tablet, sublingual 2 tab SUBLINGUAL DAILY (DME) blood-glucose meter [Blood Glucose Monitoring] Kit See Rx Instructions .ROUTE .MEDSUPPLY Qty: 1 0RF Rx Instructions: As directed (DME) pen needle, diabetic [Comfort EZ Pen [place]] 32 gauge x 3/16 needle See Rx Instructions .Route Qty: 100 5RF Rx Instructions: As directed diclofenac sodium 3 % gel 1 applic topical BID PRN (Reason: hip pain) Qty: 100 6RF lidocaine [Aspercreme (lidocaine)] 4 % adhesive patch,medicated 1 patch topical DAILY PRN (Reason: pain) Qty: 30 3RF valsartan 320 mg tablet 320 mg PO DAILY Qty: 90 3RF Farxiga 10 mg tablet See Rx Instructions .ROUTE .COMPLEX Qty: 90 0RF Dose Instruction: TAKE 1 TABLET BY MOUTH ONCE DAILY Rx Instructions: TAKE 1 TABLET BY MOUTH ONCE DAILY (DME) lancets [Accu-Chek Softclix Lancets] [facility] [place] Rx Instructions .Route Qty: 100 5RF Rx Instructions: As directed spironolactone 25 mg tablet 25 mg PO DAILY Qty: 90 1RF cholecalciferol (vitamin D3) 125 mcg (5,000 unit) capsule 125 mcg PO BID Qty: 30 1RF quetiapine 50 mg tablet See Rx Instructions .ROUTE .COMPLEX Qty: 90 3RF Dose Instruction: TAKE 1 TABLET BY MOUTH AT BEDTIME Rx Instructions: TAKE 1 TABLET BY MOUTH AT BEDTIME minoxidil 2.5 mg tablet 2.5 mg PO DAILY Qty: 30 2RF nebivolol 5 mg tablet See Rx Instructions .ROUTE .COMPLEX Qty: 90 1RF Dose Instruction: TAKE 1 TABLET BY MOUTH EVERY DAY Rx Instructions: TAKE 1 TABLET BY MOUTH EVERY DAY glipizide 10 mg tablet extended release 24hr See Rx Instructions .ROUTE .COMPLEX Qty: 90 1RF Dose Instruction: TAKE 1 TABLET BY MOUTH ONCE DAILY Rx Instructions: TAKE 1 TABLET BY MOUTH ONCE DAILY hydroxyzine pamoate 25 mg capsule See Rx Instructions .ROUTE .COMPLEX Qty: 90 2RF Dose Instruction: TAKE 1 CAPSULE BY MOUTH THREE TIMES DAILY NEEDED FOR ANXIETY Rx Instructions: TAKE 1 CAPSULE BY MOUTH THREE TIMES DAILY NEEDED FOR ANXIETY pravastatin 20 mg tablet See Rx Instructions .ROUTE .COMPLEX Qty: 90 1RF Dose Instruction: TAKE 1 TABLET BY MOUTH ONCE DAILY Rx Instructions: TAKE 1 TABLET BY MOUTH ONCE DAILY ergocalciferol (vitamin D2) [Vitamin D2] 1,250 mcg (50,000 unit) capsule See Rx Instructions .ROUTE .COMPLEX Qty: 14 0RF Dose Instruction: TAKE 1 CAPSULE BY MOUTH ONCE WEEKLY Rx Instructions: TAKE 1 CAPSULE BY MOUTH ONCE WEEKLY Vraylar 3 mg capsule 3 mg PO DAILY Qty: 30 2RF aspirin 81 mg tablet,delayed release (DR/EC) See Rx Instructions .ROUTE .COMPLEX Qty: 90 1RF Dose Instruction: TAKE 1 TABLET BY MOUTH ONCE DAILY Rx Instructions: TAKE 1 TABLET BY MOUTH ONCE DAILY calcium carbonate 600 mg calcium (1,500 mg) tablet See Rx Instructions .ROUTE .COMPLEX Qty: 90 1RF Dose Instruction: TAKE 1 TABLET BY MOUTH EVERY DAY Rx Instructions: TAKE 1 TABLET BY MOUTH EVERY DAY (DME) OneTouch Verio test strips Strip See Rx Instructions .ROUTE .COMPLEX Qty: 100 12RF Dose Instruction: FOR 3 TIMES A DAY TESTING Rx Instructions: FOR 3 TIMES A DAY TESTING aripiprazole 15 mg tablet See Rx Instructions .ROUTE .COMPLEX Qty: 90 1RF Dose Instruction: TAKE 1 TABLET BY MOUTH AT BEDTIME Rx Instructions: TAKE 1 TABLET BY MOUTH AT BEDTIME Ozempic 0.25 mg or 0.5 mg (2 mg/3 mL) pen injector See Rx Instructions .ROUTE .COMPLEX Qty: 3 3RF Dose Instruction: INJECT 0.25MG SUBCUTANEOUSLY WEEKLY; FOR 4 WEEKS Rx Instructions: INJECT 0.25MG SUBCUTANEOUSLY WEEKLY; FOR 4 WEEKS vitamin A 3,000 mcg (10,000 unit) capsule See Rx Instructions .ROUTE .COMPLEX Qty: 90 1RF Dose Instruction: TAKE 1 CAPSULE BY MOUTH EVERY DAY Rx Instructions: TAKE 1 CAPSULE BY MOUTH EVERY DAY hydrochlorothiazide 25 mg tablet 25 mg PO DAILY Qty: 30 11RF bupropion HCl 300 mg tablet extended release 24 hr 300 mg PO DAILY Qty: 30 2RF sodium,potassium,mag sulfates [Suprep Bowel Prep Kit] 17.5-3.13-1.6 gram recon soln See Rx Instructions PO .COMPLEX Qty: 354 0RF Rx Instructions: DILUTE; drink full amount early evening before AND next morning at least 4-5 hr before procedure; follow w 960 mL water PO (DME) Dexcom G7 Linseed Oil Boiler Misc See Rx Instructions .Route Qty: 1 0RF Rx Instructions: As directed (DME) Dexcom G7 Sensor Device See Rx Instructions .Route Qty: 3 4RF Rx Instructions: As directed (DME) FreeStyle Imcki 3 Sensor Device See Rx Instructions .Route Qty: 3 3RF Rx Instructions: As directed (DME) FreeStyle Micki 3 [place] Misc See Rx Instructions .Route Qty: 1 0RF Rx Instructions: As directed polyethylene glycol 3350 17 gram/dose powder See Rx Instructions .ROUTE .COMPLEX Qty: 510 2RF Dose Instruction: TAKE 17 GIVE ORALLY DAILY Rx Instructions: TAKE 17 GIVE ORALLY DAILY omeprazole 40 mg capsule,delayed release(DR/EC) See Rx Instructions .ROUTE .COMPLEX Qty: 90 1RF Dose Instruction: TAKE 1 CAPSULE BY MOUTH ONCE DAILY Rx Instructions: TAKE 1 CAPSULE BY MOUTH ONCE DAILY Referrals Follow up/Referrals: Provider,Referral, MD [Primary Care Provider, Medical] - See instructions Clinical Impressions Clinical Impression: Hypertensive emergency, CHF (congestive heart failure), Acute hypoxemic respiratory failure Print Language Print Language: Uzbek Discharge ED Provider: Yony Gonsalez General Adult HPI General Chief complaint: Shortness of Breath/Dyspnea Stated complaint: shortness of breath Time Seen by Provider: 11/23/24 19:54 Mode of Arrival: EMS Source of Information: Patient and EMS Limitations: respiratory distress History of Present Illness HPI narrative: This is a 49-year-old female with a history of type 2 diabetes and obstructive sleep apnea, hypertension, hyperlipidemia, reported CHF who presents with respiratory distress. On EMS arrival, patient satting in the 70s on room air. In significant distress. States that her shortness of breath began abruptly right at 5 PM. States that she was very hypertensive en route. Has been taking her blood pressure medicines. Related Data Home Medications ?Medication ?Instructions ?Recorded ?Confirmed buprenorphine 8 mg-naloxone 2 mg 2 tab sublingual TRISTIAN Y 10/05/20 07/09/24 sublingual tablet alcohol swabs (Alcohol Prep Pads) pad topical 03/06/23 07/09/24 nystatin 100,000 unit/gram topical 1 applic topical BI D PRN 07/09/24 powder Previous Rx's ?Medication ?Instructions ?Recorded blood-glucose meter (Blood Glucose #1 ea 10/05/20 Monitoring kit) pen needle, diabetic 32 gauge x #100 ea 11/28/21 3/16 (Comfort EZ Pen [place]) valsartan 320 mg tablet 320 mg PO DAILY #90 tabs dapagliflozin propanediol 10 mg See Rx Instructions .R oute 03/12/24 tablet (Farxiga) .COMPLEX #90 tabs lancets (Accu-Chek Softclix #100 ea 03/12/24 Lancets) cholecalciferol (vitamin D3) 125 125 mcg PO BID #30 ca ps 03/23/24 mcg (5,000 unit) capsule spironolactone 25 mg tablet 25 mg PO DAILY #90 tabs quetiapine 50 mg tablet See Rx Instructions .Route 1 .COMPLEX #90 tabs minoxidil 2.5 mg tablet 2.5 mg PO DAILY #30 tabs glipizide 10 mg tablet, extended See Rx Instructions . Route 04/27/24 release 24 hr .COMPLEX #90 tabs hydroxyzine pamoate 25 mg capsule See Rx Instructions .Route 04/27/24 .COMPLEX #90 caps nebivolol 5 mg tablet See Rx Instructions .Route 1 06/27/23 .COMPLEX #90 tabs pravastatin 20 mg tablet See Rx Instructions .Route 1 06/30/23 .COMPLEX #90 tabs cariprazine 3 mg capsule (Vraylar) 3 mg PO DAILY #30 c aps 05/18/24 ergocalciferol (vitamin D2) 1,250 See Rx Instructions .Route 05/18/24 mcg (50,000 unit) capsule (Vitamin .COMPLEX #14 caps D2) diclofenac sodium 3 % topical gel 1 applic topical BID PRN hip pain 06/08/24 #100 grams lidocaine 4 % topical patch 1 patch topical DAILY PRN pain #30 06/08/24 (Aspercreme (lidocaine)) ea aspirin 81 mg tablet,delayed See Rx Instructions .Rout e 06/09/24 release .COMPLEX #90 tabs calcium carbonate See Rx Instructions .Route 1 08/10/23 .COMPLEX #90 tabs blood sugar diagnostic (OneTouch #100 ea 06/20/24 Verio test strips) aripiprazole 15 mg tablet See Rx Instructions .Route 0 06/23/24 .COMPLEX #90 tabs hydrochlorothiazide 25 mg tablet 25 mg PO DAILY #30 ta bs 06/23/24 semaglutide 0.25 mg or 0.5 mg (2 See Rx Instructions . Route 06/23/24 mg/3 mL) subcutaneous pen injector .COMPLEX #3 mL (Ozempic) vitamin A 3,000 mcg (10,000 unit) See Rx Instructions .Route 06/23/24 capsule .COMPLEX #90 caps bupropion HCl 300 mg 24 hr tablet, 300 mg PO DAILY #30 tabs 07/13/24 extended release sodium,potassium,mag sulfates 17.5 See Rx Instructions PO .COMPLEX 07/17/24 gram-3.13 gram-1.6 gram oral soln #354 mL (Suprep Bowel Prep Kit) blood-glucose sensor (Dexcom G7 #3 ea 08/28/24 Sensor device) blood-glucose,papier mache molder,cont #1 ea 08/28/24 (Dexcom G7 Linseed Oil Boiler) blood-glucose sensor (FreeStyle #3 ea 09/08/24 Micki 3 Sensor device) blood-glucose,papier mache molder,cont #1 ea 09/08/24 (FreeStyle Micki 3 [place]) omeprazole 40 mg capsule,delayed See Rx Instructions . Route 10/08/24 release .COMPLEX #90 caps polyethylene glycol 3350 17 See Rx Instructions .Route 10/08/24 gram/dose oral powder .COMPLEX #510 grams Allergies Allergy/AdvReac Type Severity Reaction Status Date / Time No Known Allergies Allergy Verified 10/01/24 07:29 [facility] Disclaimer: The information contained in this section may have been updated after the patient was seen, as this information can be updated by other users. Medical History Colon cancer screening ALEX (obstructive sleep apnea) Mild ALEX and significant nocturnal hypoxemia, out of proportion for the degree of ALEX recorded on HSAT. Former smoker. DM2 (diabetes mellitus, type 2) Abnormal electrocardiogram [ECG] [EKG] Hepatitis C virus infection cured after antiviral drug therapy Gastroesophageal reflux disease Insomnia Hepatitis C Surgical History History of back surgery History of cholecystectomy History of hernia repair History of tubal ligation Hx of gastric bypass Family History Other Asthma Cancer Coronary artery disease Diabetes Heart attack Hyperlipidemia Hypertension Substance abuse Social History Smoking Status: Current every day smoker tobacco type: e-cigarettes years smoked: 1 how long ago did patient quit smoking: Quit smoking cigarettes in 2021 alcohol intake: never substance use type: former substance user and opiates current occupational status: unemployed Travel in the last 8 weeks?: None household members: significant other housing: house marital status: single number of children: 2 Have you lived/traveled outside [place] in past 30 days?: No Contact w/someone who lives/traveled outside US past 30 days?: No Exposure to someone with infectious disease in past 14 days?: No Do you have a fever (greater than 100.4 F or 38 C)?: No Have you tested positive for COVID-19?: No Exposed to someone with COVID-19 in past 14 days?: No Do you have a sore throat?: No Do you have a cough?: No Do you have any weakness?: No Do you have any diarrhea?: No Are you experiencing any unusual bleeding?: No Do you have any muscle aches/pain?: No Do you have any abdominal pain?: No Are you experiencing loss of taste or smell?: No Other Medical History Have you received the Flu Vaccine for this season: Yes Have you received the Pneumonia Vaccine: No ROS Obtained: Yes other (Respiratory distress) Physical Exam General General appearance: alert Comment: In significant respiratory distress. Diaphoretic Head Head exam: atraumatic Eye Eye exam: Present normal appearance, PERRL and EOMI Neck Neck exam: Present normal inspection and full ROM Chest Chest inspection: Present symmetric chest wall rise Respiratory Respiratory exam: Present respiratory distress, accessory muscle use and other (Diffuse Rales bilaterally) Cardiovascular Cardiovascular exam: Present normal rhythm and tachycardia Abdominal Exam Abdominal exam: Present soft; Absent distention or tenderness Extremities Exam Extremities exam: Present normal inspection and edema Neurological Exam Neurological exam: Present alert and oriented X3 Psychiatric Psychiatric exam: Present normal affect and normal mood Skin Skin exam: Present warm and dry Medical Decision Making Medical Records Medical records reviewed: Yes I reviewed the patient's medical records. Screening: Per USPSTF and CDC recommendations, given the prevalence of disease in our region, it is our hospital?s policy to screen for HIV and viral Hepatitis for all patients aged 18 and over and those with ongoing risk factors. MR Comment: Reviewed cardiology clinic visit note from 04/08/2024 notable for patient's past medical history Shai Inquiry Pt receiving controlled substance: No Vital Signs: 11/23/24 20:08 11/23/24 20:08 11/23/24 20:09 Temperature 97.9 F Temperature Source Tympanic Pulse Rate [Left] 124 H Respiratory Rate 34 H Blood Pressure [Right Arm] 212/122 H Blood Pressure Mean [Right Arm] 152 02 Sat by Pulse Oximetry 93 L 94 L Oxygen Delivery Method BiPAP Non-Rebreather Oxygen Flow Rate (LPM) 15 Fraction of Inspired Oxygen 40 40 Lab Data Lab Results 11/23/24 19:53: WBC 17.8 H, RBC 4.87, Hgb 14.1, Hct 46.5, MCV 95.5, MCH 29.0, M CHC 30.3 L, RDW 13.4, Plt Count 357, MPV 10.2, Neut % (Auto) 66.7, Lymph % (Auto) 25.7, [place] % (Auto) 3.9, Eos % (Auto) 2.4, Baso % (Auto) 0.8, Neut # (Auto) 11.9 H, Lymph # (Auto) 4.6 H, [place] # (Auto) 0.7, Eos # (Auto) 0.4, Baso # (Auto) 0.1, Sodium 142, Potassium 4.6, Chloride 110 H, Carbon Dioxide 26, Anion Gap 10.6, BUN 5 L, Creatinine 0.60, Estimated GFR 105, Est GFR ( Amer) 128, Glucose 319 H, Calcium 8.7, Total Bilirubin 0.5, AST 144 H, ALT 58, A lkaline Phosphatase 132 H, Troponin I < 0.01, NT-Pro-B Natriuret Pep 979 H, Total Protein 7.7, Albumin 4.4, Globulin 3.3 H, Albumin/Globulin Ratio 1.3 11/23/24 19:55: VBG pH 7.22 L, VBG pCO2 54.9 H, VBG pO2 53.4 H, VBG HCO3 22.1 L, VBG Total CO2 23.8, VBG O2 Saturation 81.4 H, VBG Base Excess -5.6 L, VBG Lactic Acid 2.5 H 11/23/24 19:53 11/23/24 19:53 Orders (Tests/Meds): ED MEDICATIONS Generic Name Dose Route Start Last Admin Trade Name Freq PRN Reason Stop Dose Admin Nitroglycerin/Dextrose 250 mls @ 3 mls/hr 11/23/24 20:00 11/23/24 21:01 Nitroglycerin 50mg/250ml D5w IV 12/23/24 19:59 15 mcg/min .Q24H SULTANA 4.5 mls/hr Protocol Titration 10 MCG/MIN Sodium Nitroprusside 50 mg/ 252 mls @ 9.259 mls/hr 11/23/24 21:15 Dextrose IV 12/23/24 21:14 .Q24H SULTANA Protocol 0.3 MCG/KG/MIN Discontinued Medications Generic Name Dose Route Start Last Admin Trade Name Freq PRN Reason Stop Dose Admin Furosemide 40 mg 11/23/24 21:05 Furosemide 40mg/4ml Vial IV 11/23/24 21:06 ONCE ONE ORDERS Category Date Time Status Chest XR -- portable [XR chest portable] Stat Exams 11/23/24 19:51 Completed POCUS Point of Care (ER Only) Stat Exams 11/23/24 19:55 Completed BNP [NT Pro Brain Natriuretic Pep.] Stat Lab 11/23/24 19:53 Completed CBC w/Auto Diff [Complete Blood Count Auto Diff] Stat Lab 11/23/24 19:53 Completed CMP [Comprehensive Metabolic Panel] Stat Lab 11/23/24 19:53 Completed Troponin I Q3H Lab 11/23/24 23:00 Ordered Troponin I Q3H Lab 11/24/24 02:00 Ordered Troponin I Stat Lab 11/23/24 19:53 Completed VBG [Venous Blood Gas] Stat RT 11/23/24 19:55 Completed ECG Data Tracing #1: I reviewed this ECG and interpreted as documented below: Sinus tachycardia at a rate of 128, QTc 376, significantly limited by artifact Medical Decision Narrative: In summary, this 49-year-old female with a history of diabetes, hypertension, hyperlipidemia, reported CHF presents to the emergency department today with acute hypoxic respiratory failure. On initial evaluation patient is severely hypertensive with SBP in the 210s, satting 86% on a nonrebreather and significant respiratory distress with diffuse crackles bilaterally. Differential diagnosis includes but is not limited to SCAPE, CHF, pneumonia, ARDS, hypertensive emergency. [id number] ultrasound revealed significantly depressed left ventricular systolic function and diffuse bilateral B-lines. Clinical picture was highly concerning for SCAPE. Patient was immediately placed on BiPAP which she tolerated well and nitroglycerin infusion was initiated and titrated to SBP 160 which is 25% of patient's presenting systolic blood pressure. Based on these concerns, I ordered CBC, CMP, troponin, EKG, chest x-ray, BNP. Considered CT PE however patient not stable enough for scan. ECG personally interpreted as noted above. Labs personally reviewed demonstrate white blood cell count of 17.8, VBG with venous pH of 7.22 and pCO2 of 54, lactate of 2.5 nonactionable CMP, normal renal function. XR personally interpreted demonstrates significant pulmonary edema. BiPAP titrated to 12/6 at 40% FiO2. Patient appeared to have slight clinical improvement. SBP in the 160s. Consulted hospital medicine for admission. Procedures Miscellaneous Procedure Procedure Performed: Cardiac US Limited Cardiac Ultrasound Indication: Hypoxia/shortness of breath Identified cardiac views: Parasternal long axis Parasternal short axis Apical four-chamber Findings: Significantly depressed left ventricular systolic function Impression: - From above Images were saved to permanent archive The study was not technically adequate CPT: 36807 This study was performed by nj, and I personally interpreted all images/videos. Based on my clinical judgement, these images were adequate and did not necessitate further imaging. Lung ultrasound Limited lung ultrasound A focused ultrasound exam of the pleural spaces was performed to evaluate for pneumothorax, pulmonary edema, pleural effusion and/or consolidation. The ultrasound was performed with the following indications, as noted in the H&P: Hypoxia Identified structures: Bilateral thoracic cavities were examined. Findings: Lung sliding: - Bilateral sliding B-lines: - Diffuse bilateral B-lines in all lung christine Impression: - B-lines bilateral Images were saved to permanent archive The study was technically adequate CPT 08203-15 This study was performed by nj, and I personally interpreted all images/videos. Based on my clinical judgement, these images were adequate and did not necessitate further imaging. Critical Care Critical Care Time Critical Care Time: Yes Attestation: On 11/23/24, the high probability of a clinically significant, sudden or life threatening deterioration of the following system(s) required my full and direct attention, intervention and personal management. The time I documented below is in addition to time spent performing reported procedures but includes the following listed in this critical care notation. Total Time Total Critical Care Time: 75
[2024-11-23 20:04] LABS: Basophils # 0.1 K/mm3 (0-0.2); Basophils % 0.8 % (0.1-2.0); Eosinophils # 0.4 Kmm3 (0.0-0.4); Eosinophils % 2.4 % (0.1-12.0); Hematocrit 46.5 % (37.0-47.0); Hemoglobin 14.1 g/dL (12.2-16.2); Immature Granulocytes # 0.09 10^3uL; Immature Granulocytes % 0.5 %; Lymphocytes # 4.6 K/mm3 (0.7-4.5); Lymphocytes % 25.7 % (10-50); Mean Corpuscular HGB Conc 30.3 g/dL (31.8-35.4); Mean Corpuscular Volume 95.5 fl (81-99); Mean Platelet Volume 10.2 fl (7.4-10.4); Monocytes # 0.7 K/mm3 (0.1-1.0); Monocytes % 3.9 % (1.7-9.3); Neutrophils # 11.9 K/mm3 (1.8-7.8); Neutrophils % 66.7 % (37.0-80.0); Nucleated Red Blood Cells # 0 10^3/uL; Nucleated Red Blood Cells % 0 %; Platelet Count 357 K/mm3 (142-424); Red Blood Count 4.87 M/mm3 (4.20-5.40); Red Cell Distribution Width 13.4 % (11.5-17.5); Red Cell Distribution Width-SD 47.5 fL; White Blood Count 17.8 K/mm3 (4.8-10.8)
--- NOTE | 2024-11-23 20:08 | PC.NURSE ---
pt placed on BIPAP
[2024-11-23 20:18] LABS: Albumin Level 4.4 g/dl (3.5-5.0); Chloride 110 mmol/L (98-107)
[2024-11-23 20:19] LABS: Potassium 4.6 mmoL/L (3.5-5.1); Sodium 142 mmol/L (136-145)
[2024-11-23 20:20] LABS: Lactate Venous 2.5 mmol/L (0.4-2.0); VBG PCO2 54.9 mmol/L (35-51)
[2024-11-23 20:21] LABS: Alanine Aminotransferase 58 U/L (12-78); Anion Gap 10.6 mEq/L (5-15); Aspartate Amino Transferase 144 U/L (14-36); Blood Urea Nitrogen 5 mg/dl (7-17); Carbon Dioxide 26 mmol/L (22.0-30.0); Estimated Glomerular Filt Rate 105 ml/min (>60); GFR (African American) 128 ML/MIN (>60)
[2024-11-23 20:22] LABS: Albumin/Globulin Ratio 1.3 (1.1-1.8); Alkaline Phosphatase 132 U/L (38-126); Bilirubin,Total 0.5 mg/dl (0.2-1.3); Calcium 8.7 mg/dl (8.4-10.2); Globulin 3.3 g/dL (1.3-3.2); Glucose 319 mg/dl (74-100); Total Protein,Serum 7.7 g/dl (6.3-8.2)
[2024-11-23 20:31] LABS: NT Pro Brain Natriuretic Pep. 979 pg/mL (0-125)
[2024-11-23 20:35] LABS: Troponin I < 0.01 ng/ml (0.00-0.034)
--- NOTE | 2024-11-23 20:37 | PC.NURSE ---
Per Dr Gonsalez, SBP goal 160-180
[2024-11-23] MEDS: FUROSEMIDE 40MG/4ML VIAL 40 MG IV (21:12)
[2024-11-23] MEDS: NITROPRUSSIDE SODIUM 50 MG in DEXTROSE 5 % IN WATER 250 ML 9.26 MG IV (21:20)
--- NOTE | 2024-11-23 21:24 | EXP.HP ---
History of Present Illness *Admission Date: 11/23/24 *Reason for visit:: Shortness of breath *History of present illness: 29-year-old female presents emergency department via EMS due to acute onset dyspnea that began today. History unable to be obtained due to respiratory failure and BiPAP. On arrival patient's blood pressure was greater than 200 and patient was in respiratory distress. I started him on nitroprusside and given 40 of IV Lasix. Transthoracic echo performed performed by myself demonstrated poor acoustic windows, but LVEF approximately 35% global hypokinesis, no significant mitral regurgitation, RV poorly visualized, IVC dilated RA pressure 20. Chest x-ray demonstrated cardiomegaly with pulmonary vascular congestion. EKG suggests sinus tachycardia if there is an intensity of the past year, baseline artifact, no ST deviations. labs notable for leukocytosis notable labs including leukocytosis transfusion elevated BNP lactic acidosis transaminitis Patient was transferred to ICU. History independently. Laboratory diagnostic evaluation independently interpreted. Prior records reviewed. Discussed case with ER physician [facility] Disclaimer: The information contained in this section may have been updated after the patient was seen, as this information can be updated by other users. Medical History Colon cancer screening ALEX (obstructive sleep apnea) Mild ALEX and significant nocturnal hypoxemia, out of proportion for the degree of ALEX recorded on HSAT. Former smoker. DM2 (diabetes mellitus, type 2) Abnormal electrocardiogram [ECG] [EKG] Hepatitis C virus infection cured after antiviral drug therapy Gastroesophageal reflux disease Insomnia Hepatitis C Surgical History History of back surgery History of cholecystectomy History of hernia repair History of tubal ligation Hx of gastric bypass Family History Other Asthma Cancer Coronary artery disease Diabetes Heart attack Hyperlipidemia Hypertension Substance abuse Social History Smoking Status: Current every day smoker tobacco type: e-cigarettes years smoked: 1 how long ago did patient quit smoking: Quit smoking cigarettes in 2021 alcohol intake: never substance use type: former substance user and opiates current occupational status: unemployed Travel in the last 8 weeks?: None household members: significant other housing: house marital status: single number of children: 2 Have you lived/traveled outside [place] in past 30 days?: No Contact w/someone who lives/traveled outside US past 30 days?: No Exposure to someone with infectious disease in past 14 days?: No Do you have a fever (greater than 100.4 F or 38 C)?: No Have you tested positive for COVID-19?: No Exposed to someone with COVID-19 in past 14 days?: No Do you have a sore throat?: No Do you have a cough?: No Do you have any weakness?: No Do you have any diarrhea?: No Are you experiencing any unusual bleeding?: No Do you have any muscle aches/pain?: No Do you have any abdominal pain?: No Are you experiencing loss of taste or smell?: No Other Medical History Have you received the Flu Vaccine for this season: Yes Have you received the Pneumonia Vaccine: No Review of Systems Review of Systems Review of systems:: unable to obtain Meds Home Medications and Allergies Home Medications ?Medication ?Instructions ?Recorded ?Confirmed ?Type blood-glucose meter (Blood Glucose #1 ea 10/05/20 06/08/24 Rx Monitoring kit) buprenorphine 8 mg-naloxone 2 mg 2 tab sublingual DAILY 10/05/20 07/09/24 History sublingual tablet pen needle, diabetic 32 gauge x #100 ea 11/28/21 06/08/24 Rx 3/16 (Comfort EZ Pen Rives) alcohol swabs (Alcohol Prep Pads) pad topical 03/06/23 07/09/24 History valsartan 320 mg tablet 320 mg PO DAILY #90 tabs 01/02/24 07/09/24 Rx dapagliflozin propanediol 10 mg See Rx Instructions .Route 03/12/24 07/09/24 Rx tablet (Farxiga) .COMPLEX #90 tabs lancets (Accu-Chek Softclix #100 ea 03/12/24 06/08/24 Rx Lancets) cholecalciferol (vitamin D3) 125 125 mcg PO BID #30 caps 03/23/24 07/09/24 Rx mcg (5,000 unit) capsule spironolactone 25 mg tablet 25 mg PO DAILY #90 tabs 03/23/24 07/09/24 Rx quetiapine 50 mg tablet See Rx Instructions .Route 03/25/24 07/09/24 Rx .COMPLEX #90 tabs minoxidil 2.5 mg tablet 2.5 mg PO DAILY #30 tabs 04/07/24 07/09/24 Rx glipizide 10 mg tablet, extended See Rx Instructions .Route 04/27/24 07/09/24 Rx release 24 hr .COMPLEX #90 tabs hydroxyzine pamoate 25 mg capsule See Rx Instructions .Route 04/27/24 07/09/24 Rx .COMPLEX #90 caps nebivolol 5 mg tablet See Rx Instructions .Route 04/27/24 07/09/24 Rx .COMPLEX #90 tabs pravastatin 20 mg tablet See Rx Instructions .Route 04/30/24 07/09/24 Rx .COMPLEX #90 tabs cariprazine 3 mg capsule (Vraylar) 3 mg PO DAILY #30 caps 05/18/24 07/09/24 Rx ergocalciferol (vitamin D2) 1,250 See Rx Instructions .Route 05/18/24 07/09/24 Rx mcg (50,000 unit) capsule (Vitamin .COMPLEX #14 caps D2) diclofenac sodium 3 % topical gel 1 applic topical BID PRN hip pain 06/08/24 07/09/24 Rx #100 grams lidocaine 4 % topical patch 1 patch topical DAILY PRN pain #30 06/08/24 07/09/24 Rx (Aspercreme (lidocaine)) ea aspirin 81 mg tablet,delayed See Rx Instructions .Route 06/09/24 07/09/24 Rx release .COMPLEX #90 tabs calcium carbonate See Rx Instructions .Route 06/09/24 07/09/24 Rx .COMPLEX #90 tabs blood sugar diagnostic (OneTouch #100 ea 06/20/24 Rx Verio test strips) aripiprazole 15 mg tablet See Rx Instructions .Route 06/23/24 07/09/24 Rx .COMPLEX #90 tabs hydrochlorothiazide 25 mg tablet 25 mg PO DAILY #30 tabs 06/23/24 07/09/24 Rx semaglutide 0.25 mg or 0.5 mg (2 See Rx Instructions .Route 06/23/24 07/09/24 Rx mg/3 mL) subcutaneous pen injector .COMPLEX #3 mL (Ozempic) vitamin A 3,000 mcg (10,000 unit) See Rx Instructions .Route 06/23/24 07/09/24 Rx capsule .COMPLEX #90 caps nystatin 100,000 unit/gram topical 1 applic topical BID PRN 07/09/24 History powder bupropion HCl 300 mg 24 hr tablet, 300 mg PO DAILY #30 tabs 07/13/24 Rx extended release sodium,potassium,mag sulfates 17.5 See Rx Instructions PO .COMPLEX 07/17/24 Rx gram-3.13 gram-1.6 gram oral soln #354 mL (Suprep Bowel Prep Kit) blood-glucose sensor (Dexcom G7 #3 ea 08/28/24 Rx Sensor device) blood-glucose,portfolio consultant,cont #1 ea 08/28/24 Rx (Dexcom G7 Vehicle Modification Technician) blood-glucose sensor (FreeStyle #3 ea 09/08/24 Rx Imcki 3 Sensor device) blood-glucose,portfolio consultant,cont #1 ea 09/08/24 Rx (FreeStyle Micki 3 Tyler) omeprazole 40 mg capsule,delayed See Rx Instructions .Route 10/08/24 Rx release .COMPLEX #90 caps polyethylene glycol 3350 17 See Rx Instructions .Route 10/08/24 Rx gram/dose oral powder .COMPLEX #510 grams New Prescriptions to Start Prescriptions: Allergies Allergy/AdvReac Type Severity Reaction Status Date / Time No Known Allergies Allergy Verified 10/01/24 07:29 Exam Data for Last 24 hours Vital signs and Labs for Last 24 Hours: Temp Pulse Resp BP Pulse Ox O2 Del Method O2 Flow Rate 97.9 F 117 H 31 H 158/97 H 93 L Non-Rebreather 15 11/23/24 20:09 11/23/24 21:05 11/23/24 21:10 11/23/24 21:10 11/23/24 21:05 11/23/24 20:09 11/23/24 20:09 FiO2 40 11/23/24 20:08 Laboratory Results - last 24 hr 11/23/24 19:53: WBC 17.8 H, RBC 4.87, Hgb 14.1, Hct 46.5, MCV 95.5, MCH 29.0, MCHC 30.3 L, RDW 13.4, Plt Count 357, MPV 10.2, Neut % (Auto) 66.7, Lymph % (Auto) 25.7, [place] % (Auto) 3.9, Eos % (Auto) 2.4, Baso % (Auto) 0.8, Neut # (Auto) 11.9 H, Lymph # (Auto) 4.6 H, [place] # (Auto) 0.7, Eos # (Auto) 0.4, Baso # (Auto) 0.1, Sodium 142, Potassium 4.6, Chloride 110 H, Carbon Dioxide 26, Anion Gap 10.6, BUN 5 L, Creatinine 0.60, Estimated GFR 105, Est GFR ( Amer) 128, Glucose 319 H, Calcium 8.7, Total Bilirubin 0.5, AST 144 H, ALT 58, Alkaline Phosphatase 132 H, Troponin I < 0.01, NT-Pro-B Natriuret Pep 979 H, Total Protein 7.7, Albumin 4.4, Globulin 3.3 H, Albumin/Globulin Ratio 1.3 11/23/24 19:55: VBG pH 7.22 L, VBG pCO2 54.9 H, VBG pO2 53.4 H, VBG HCO3 22.1 L, VBG Total CO2 23.8, VBG O2 Saturation 81.4 H, VBG Base Excess -5.6 L, VBG Lactic Acid 2.5 H I & O for Last 24 hours: Intake & Output 11/20/24 11/21/24 11/22/24 11/23/24 23:59 23:59 23:59 23:59 Intake Total 7.425 / 7.425 Balance 7.425 / 7.425 Weight 102.058 kg Constitutional Constitutional: moderate distress and obese *Routine HEENT Exam Head: Present normocephalic Eye: Present EOMI ENT: Present mucous membranes moist *Routine Neck Exam Neck: Present supple and JVD *Routine Respiratory Exam Respiratory: Present accessory muscle use, rales and respiratory distress *Routine Cardiovascular Exam Cardiovascular: Present Normal S1, Normal S2 and tachycardia *Routine Abdominal Exam Abdominal: Present soft and distended *Routine Rectal Exam Rectal:: deferred *Routine Genitalia Exam Genitalia:: deferred *Routine Extremities Exam Extremities: Present edema; Absent cyanosis *Routine Skin Exam Skin: Present intact and dry *Routine Neurological Exam Neurological: Present alert and oriented X3 Assessment and Plan *Assessment and plan (1) Acute hypoxemic respiratory failure: Status: Acute Category: Medical Code(s): J96.01 - Acute respiratory failure with hypoxia (2) CHF (congestive heart failure): Status: Acute Category: Medical Code(s): I50.9 - Heart failure, unspecified (3) Hypertensive emergency: Status: Acute Category: Medical Code(s): I16.1 - Hypertensive emergency (4) BMI greater than 30: Problem Comment: History of bariatric surgery and currently on Ozempic Status: Chronic Category: Medical (5) Diabetes: Status: Chronic Qualifiers: Diabetes mellitus type: type 2 Diabetes mellitus complication status: with neurologic complications Diabetes mellitus complication detail: with other neurological complication Diabetes mellitus prison insulin use: without termite helper use Qualified Code(s): E11.49 - Type 2 diabetes mellitus with other diabetic neurological complication Category: Medical Code(s): E11.9 - Type 2 diabetes mellitus without complications Plan 49-year-old female with pelvic dysfunction EF approximately 35% presenting hypertensive emergency and acute heart failure patient. Hypertensive emergency Acute decompensated heart failure Acute respiratory failure - Nitroprusside - IV Lasix 40 mg twice daily - Will start p.o. antihypertensives in the morning and wean by primary - Echo - GDMT - Cardiology consult Respiratory acidosis - BiPAP Diabetes - SSI Obesity - Complicates all aspects of care
--- NOTE | 2024-11-23 22:20 | PC.NURSE ---
patient A&Ox4 and placed on CPAP at this time. maintaining sats >90%. denies SOA or cough and states she is feeling better. crackles noted bilaterally throughout. pitting edema 3+ BLE. PW in place to monitor output. patient currently on a nitroprusside gtt - see mar for titration.
[2024-11-23] MEDS: humaLOG 100 UNITS/ML 10ML VIAL (SSI) 10 UNIT SUBCUT (23:04)
[2024-11-23 23:07] LABS: POC Glucose,Bedside 268 (70-110)
[2024-11-23 23:56] LABS: Reflex Lactic Add Lactic Reflex
[2024-11-24] VITALS (58 sets, daily range): BP systolic 128–170; BP diastolic 59–92; PULSE 70–104; RESP 14–25; TEMP 36.6–36.9; O2SAT 88–98; BMI 33.9
[2024-11-24 00:39] LABS: Lactic Acid Follow Up (RFLX 1) 2.5 mmol/L (0.7-2.1)
[2024-11-24 00:50] LABS: Troponin I 0.03 ng/ml (0.00-0.034)
[2024-11-24 02:22] LABS: Reflex Lactic (2 hrs) Add Lactic Reflex
--- NOTE | 2024-11-24 02:48 | PC.NURSE ---
patient arrived to the ICU room 261 roughly 2210 - first vital obtained at 2213. Vital signs charted by Richard Abdi RN accurately reflect patients vitals while in this RN's care and nitroprusside gtt was titrated accordingly to vitals charted by Rony Abdi. There are a few vitals charted by Hermelindo Verduzco RN from ED (who is no longer present to retime at this moment) that need retimed because they reflect times while the patient was in the ED, not the ICU. Elliot Rowland, ER sagger preparer notified - note made to verify inaccuracy in case questions arise.
[2024-11-24 02:56] LABS: Lactic Acid Follow up (RFLX 2) 1.8 mmol/L (0.7-2.1)
[2024-11-24 03:08] LABS: Troponin I 0.04 ng/ml (0.00-0.034)
--- NOTE | 2024-11-24 03:51 | PC.NURSE ---
unable to do patient med rec - patient states i don't know what i take, look at my portal - check patient external pharm, appears that medications haven't been filled since July 2024.
[2024-11-24 05:19] LABS: POC Glucose,Bedside 194 (70-110)
[2024-11-24] MEDS: humaLOG 100 UNITS/ML 10ML VIAL (SSI) SUBCUT ×2 (05:21→16:44)
--- NOTE | 2024-11-24 05:32 | PC.NURSE ---
able to wean patient from 4L NC to 1L NC - attempted to wean to RA but when patient sleeps she drops to 88%, therefore remains on 1L NC at this time. non-labored respirations, right lung base fine crackles, others clear throughout. patient has lost almost 6 pounds overnight, diuresing with output of 2+ liters tonight and monitoring with purewick.
[2024-11-24 06:21] LABS: Basophils % 0.2 % (0.1-2.0); Hematocrit 39.3 % (37.0-47.0); Hemoglobin 12.8 g/dL (12.2-16.2); Immature Granulocytes # 0.02 10^3uL; Immature Granulocytes % 0.2 %; Lymphocytes # 0.7 K/mm3 (0.7-4.5); Lymphocytes % 7.3 % (10-50); Mean Corpuscular HGB Conc 32.6 g/dL (31.8-35.4); Mean Corpuscular Hemoglobin 29.9 pg (27.0-31.2); Mean Corpuscular Volume 91.8 fl (81-99); Mean Platelet Volume 9.8 fl (7.4-10.4); Monocytes # 0.2 K/mm3 (0.1-1.0); Monocytes % 1.9 % (1.7-9.3); Neutrophils # 8.4 K/mm3 (1.8-7.8); Neutrophils % 90.4 % (37.0-80.0); Nucleated Red Blood Cells # 0 10^3/uL; Nucleated Red Blood Cells % 0 %; Platelet Count 308 K/mm3 (142-424); Red Blood Count 4.28 M/mm3 (4.20-5.40); Red Cell Distribution Width 13.2 % (11.5-17.5); Red Cell Distribution Width-SD 44.5 fL; White Blood Count 9.3 K/mm3 (4.8-10.8)
[2024-11-24 06:40] LABS: Albumin Level 3.8 g/dl (3.5-5.0); Chloride 107 mmol/L (98-107); Potassium 3.6 mmoL/L (3.5-5.1); Sodium 139 mmol/L (136-145)
[2024-11-24 06:43] LABS: Alanine Aminotransferase 49 U/L (12-78); Albumin/Globulin Ratio 1.2 (1.1-1.8); Alkaline Phosphatase 127 U/L (38-126); Anion Gap 5.6 mEq/L (5-15); Aspartate Amino Transferase 54 U/L (14-36); Bilirubin,Total 0.2 mg/dl (0.2-1.3); Blood Urea Nitrogen 6 mg/dl (7-17); Carbon Dioxide 30 mmol/L (22.0-30.0); Cholesterol 139 mg/dl (140-200); Creatinine Clearance Estimated 219 mL/min (50-200); Estimated Glomerular Filt Rate 130 ml/min (>60); GFR (African American) 157 ML/MIN (>60); Globulin 3.1 g/dL (1.3-3.2); Phosphorous 2.3 mg/dl (2.5-4.5); Total Protein,Serum 6.9 g/dl (6.3-8.2); Triglycerides 52 mg/dl (30-150); VLDL Cholesterol 10 mg/dL (0-40)
[2024-11-24 06:44] LABS: Calcium 8.7 mg/dl (8.4-10.2); Glucose 225 mg/dl (74-100); HDL Cholesterol 47 mg/dl (40-60)
[2024-11-24 06:55] LABS: Direct LDL Cholesterol 65.19 mg/dL (100-129)
[2024-11-24] MEDS: DOCUSATE SODIUM 100 MG CAPSULE PO (08:25)
[2024-11-24] MEDS: ACETAMINOPHEN 325MG TAB 650 MG PO (09:14)
[2024-11-24] MEDS: IRBESARTAN 300MG TABLET 300 MG PO (09:14)
[2024-11-24] MEDS: BUMETANIDE 1 MG TABLET PO ×2 (09:15→16:21)
--- NOTE | 2024-11-24 09:37 | CA_ITS ---
APPROVED REPORT EXAM: Comprehensive 2D, Doppler, and color-flow Echocardiogram Spinning Frame Changer: Elizabeth Knutson RT(R) Ht: 5 ft 9 in Wt: 229lbs BSA: 2.19 BP: 158/97 mmHg Indications: Pulmonary edema Echo Enhancing Agent Indication: Endocardial border delineation Agent(s) / Amount(s) Used: Definity 2 cc 2D Dimensions LA Volume 42.60 mL LA Volume Index 19.45 mL/m2 (M/F) 16-34 EF AP4 38.40 % GL Strain -13.3 % M-Mode Dimensions RVDd 2.77 cm (0.9-2.6) LA Diam 3.70 cm (1.9-4.0) LVDd 6.20 cm (3.5-5.7) LVDs 4.87 cm (3.5-5.7) IVSd 0.80 cm (0.6-1.1) PWd 0.76 cm (0.6-1.1) EF (Teich) 42.70% FS 21.50% EDV (Teich) 194.00 mL ESV (Teich) 111.20 mL LV Diastology E Decel Time 103 (160-240 msec) E/A Ratio 1.11 Mitral Valve MV A Velocity 65.0 (40-130 cm/s) E/A Ratio 1.11 Left Ventricle The left ventricle is normal size. The left ventricular systolic function is low normal. There is increased LV wall thickness. There is normal LV segmental wall motion. The left ventricular diastolic function is normal. No left ventricle thrombus noted on this study. LVEF is 50%. Right Ventricle The right ventricle is normal size. The right ventricular systolic function is normal. Atria The left atrium size is normal. The right atrium size is normal. There is no Doppler evidence of interatrial shunt. Aortic Valve The aortic valve is mildly thickened. Trace mitral regurgitation. There is no aortic valvular stenosis. No aortic regurgitation is present. Mitral Valve The mitral valve is normal in structure. No evidence of mitral valve stenosis. Tricuspid Valve Tricuspid valve is grossly normal in structure and function. Trace tricuspid regurgitation. There is insufficient TR jet to estimate RVSP. Pulmonic Valve The pulmonary valve is normal in structure. Trace pulmonic regurgitation. Great Vessels The aortic root is normal in size. IVC is normal in size and collapses >50% with inspiration. Pericardium There is no pericardial effusion. Other Information Study Quality: Fair Conclusion Low-normal LV systolic function (LVEF 50%). No significant valvular stenosis or regurgitation. Electronically signed by : Ml Dempsey MD 11/24/2024 12:29:25
[2024-11-24] MEDS: METOPROLOL SUCCINATE XL 25MG TABLET 25 MG PO (10:30)
[2024-11-24] MEDS: SPIRONOLACTONE 25MG TABLET 25 MG PO (10:30)
[2024-11-24] MEDS: ASPIRIN EC 81MG TABLET 81 MG PO (10:30)
[2024-11-24] MEDS: hydroCHLOROthiazide 25MG TABLET 25 MG PO (10:30)
--- NOTE | 2024-11-24 10:51 | IR_ITS ---
APPROVED REPORT Patient Location: Inpatient Cigarette Stamper: BRIGITTE Beebe RT (R) PROCEDURES Left heart catheterization Left ventriculogram Left ventriculogram Bilateral selective renal angiogram Intravascular ultrasound to the left renal artery INDICATION Acute non-ST elevation myocardial infarction, Cardiomyopathy ejection fraction 35%, Malignant hypertension, Suspect renovascular hypertension, Suspected fibromuscular dysplasia of the left renal artery Informed consent was obtained prior to the procedure. COMPLICATIONS NONE Estimated Blood Loss: LESS THAN 10 ML TECHNIQUE One percent lidocaine used to anesthetize the right anterior aspect of the wrist. The right radial artery was accessed via the Seldinger technique. A 6 Turkish sheath was placed in the right radial artery. 2.5 mg of Verapamil, 800 mcg of nitroglycerin, 1mg Lidocaine and 5000 U Heparin were given through the arterial sheath. The JL3 catheter was also used to perform left heart catheterization, left ventriculogram and selective coronary angiogram. At the end the diagnostic angiogram the JL 3 guide catheter was placed under fluoroscopic guidance into the abdominal aorta and the JL 3 guide catheter was used to perform bilateral selective renal angiography. There was angiographic ambiguity involving the left renal artery to suggest possible fibromuscular dysplasia versus a napkin ringlike lesion. Therapeutic heparin was administered giving a therapeutic ACT and a BMW wire was placed distally in the left renal artery followed by intravascular ultrasound probe. This demonstrated the renal artery was widely patent with mild plaque in the angiographic abnormality was a tortuous and a benign structure. The apparatus was removed the sheath was removed and hemostasis was achieved using TR band patient was transferred to the postop putting in stable condition ANGIOGRAPHIC RESULTS The left main artery Has an ostial 30 to 40% stenosis with no dampening upon engagement The left anterior descending artery As calcification in the proximal segment with 10 and 20% stenoses The circumflex artery Dominant 10% luminal regularities The right coronary artery Nondominant 10% diffuse luminal regularities The MILLS ventriculogram reveals Dilated ventricle reduced ejection fraction estimated at 35 to 40% The left ventricular end-diastolic pressure 25 mmHg Right renal artery singular normal Left renal artery singular and has angiographic ambiguous lesion in the mid segment which is IVUS proven tortuous bend. IMPRESSION Moderate ostial left main disease as described above Mild diffuse calcifications with nonobstructive disease in the LAD circumflex artery and right coronary artery Reduced ejection fraction likely secondary to hypertensive cardiomyopathy Elevated LVEDP PLAN 1. Medical management for coronary artery disease 2. Goal LDL less than 55 to be achieved with high intensity statin 3. Avoidance of tobacco products 4. Risk factor modification 5. GDMT for systolic heart failure 6. Treatment of hypertension Electronically signed by : Paulo Vieyra MD 11/24/2024 13:55:43
[2024-11-24] MEDS: DEFINITY US ECHO CONTRAST 2ML INJ 2 MG IV (10:52)
--- NOTE | 2024-11-24 10:55 | ECG_ITS ---
APPROVED REPORT Exam: Resting ECG HR:81 bpm ECG Measurements Heart Rate 81 AXES GA 210 P 67 QRSd 89 QRS 25 QT 387 T 121 QTc 424 Conclusion SINUS RHYTHM WITH FIRST DEGREE AV BLOCK MODERATE T-WAVE ABNORMALITY, CONSIDER LATERAL ISCHEMIA [-0.1+ mV T-WAVE IN I/aVL/V5/V6] ABNORMAL ECG UNCONFIRMED REPORT Electronically signed by : Aly Marcum MD 11/25/2024 08:43:43
--- NOTE | 2024-11-24 11:37 | EXP.CARD.CON ---
History of Present Illness History of Present Illness Consult date: 11/24/24 Chief complaint: Shortness of breath History of present illness: 49-year-old white female established patient of our office with history of obesity and high blood pressure. Historically normal EF at 50% last year. Also has diabetes and is status post gastric surgery with absorption issues, obstructive sleep apnea. Patient states she had been in her usual state of health when yesterday she developed sudden onset severe dyspnea and called EMS. She required BiPAP and blood pressure was greater than 200. In the ER bedside echo showed reduced EF with global hypokinesis, chest x-ray revealed cardiomegaly and pulmonary vascular congestion, AST was up to 140, troponin 0.01, 0.03, 0.04. proBNP 979, LDL 65, A1c 6, EKG artifact. Patient was started on nitroprusside and given Bumex 1 mg twice daily with irbesartan and admitted to the ICU. This morning her blood pressures improved significantly. She has diuresed 2 L and states she is feeling much better overall. [facility] Disclaimer: The information contained in this section may have been updated after the patient was seen, as this information can be updated by other users. Medical History Colon cancer screening ALEX (obstructive sleep apnea) DM2 (diabetes mellitus, type 2) Abnormal electrocardiogram [ECG] [EKG] Hepatitis C virus infection cured after antiviral drug therapy Gastroesophageal reflux disease Insomnia Hepatitis C Surgical History History of back surgery History of cholecystectomy History of hernia repair History of tubal ligation Hx of gastric bypass Family History Other Asthma Cancer Coronary artery disease Diabetes Heart attack Hyperlipidemia Hypertension Substance abuse Social History Smoking Status: Current every day smoker tobacco type: e-cigarettes years smoked: 1 how long ago did patient quit smoking: Quit smoking cigarettes in 2021 alcohol intake: former substance use type: former substance user and opiates current occupational status: unemployed Travel in the last 8 weeks?: None household members: significant other housing: house marital status: single number of children: 2 Have you lived/traveled outside [place] in past 30 days?: No Contact w/someone who lives/traveled outside [place] past 30 days?: No Exposure to someone with infectious disease in past 14 days?: No Do you have a fever (greater than 100.4 F or 38 C)?: No Have you tested positive for COVID-19?: No Exposed to someone with COVID-19 in past 14 days?: No Do you have a sore throat?: No Do you have a cough?: No Do you have any weakness?: No Do you have any diarrhea?: No Are you experiencing any unusual bleeding?: No Do you have any muscle aches/pain?: No Do you have any abdominal pain?: No Are you experiencing loss of taste or smell?: No Review of Systems Constitutional Constitutional: Reports fatigue and Reports weakness Eyes Eyes: Denies loss of vision ENT Ears, Nose, Mouth, and Throat: Denies hearing loss and Denies vertigo *Cardiovascular Cardiovascular: Denies chest pain, Reports dyspnea and Denies syncope *Respiratory Respiratory: Denies cough and Reports dyspnea *Gastrointestinal Gastrointestinal: Denies change in stool character, Denies nausea and Denies vomiting *Musculoskeletal Musculoskeletal: Denies muscle weakness Integumentary/Breasts Skin/Breast: Denies changing lesions *Neurologic Neurologic: Denies loss of vision, Denies syncope, Denies vertigo and Reports weakness Endocrine Endocrine: Reports fatigue Exam Data for Last 24 hours Vital signs and Labs for Last 24 Hours: Temp Pulse Resp BP Pulse Ox O2 Del Method O2 Flow Rate 98.0 F 83 20 144/80 H 94 L Nasal Cannula 1 11/24/24 09:00 11/24/24 11:11/24/24 11:11/24/24 11:11/24/24 11:11/24/24 11:11/24/24 11:00 FiO2 40 11/24/24 01:28 Laboratory Results - last 24 hr 11/23/24 19:53: WBC 17.8 H, RBC 4.87, Hgb 14.1, Hct 46.5, MCV 95.5, MCH 29.0, MCHC 30.3 L, RDW 13.4, Plt Count 357, MPV 10.2, Neut % (Auto) 66.7, Lymph % (Auto) 25.7, Erie % (Auto) 3.9, Eos % (Auto) 2.4, Baso % (Auto) 0.8, Neut # (Auto) 11.9 H, Lymph # (Auto) 4.6 H, Erie # (Auto) 0.7, Eos # (Auto) 0.4, Baso # (Auto) 0.1, Sodium 142, Potassium 4.6, Chloride 110 H, Carbon Dioxide 26, Anion Gap 10.6, BUN 5 L, Creatinine 0.60, Estimated GFR 105, Est GFR ( Amer) 128, Glucose 319 H, Calcium 8.7, Total Bilirubin 0.5, AST 144 H, ALT 58, Alkaline Phosphatase 132 H, Troponin I < 0.01, NT-Pro-B Natriuret Pep 979 H, Total Protein 7.7, Albumin 4.4, Globulin 3.3 H, Albumin/Globulin Ratio 1.3 11/23/24 19:55: VBG pH 7.22 L, VBG pCO2 54.9 H, VBG pO2 53.4 H, VBG HCO3 22.1 L, VBG Total CO2 23.8, VBG O2 Saturation 81.4 H, VBG Base Excess -5.6 L, VBG Lactic Acid 2.5 H 11/23/24 23:00: POC Glucose 268 H 11/23/24 23:58: Troponin I 0.03 11/24/24 00:15: Lactate 2.5 H 11/24/24 02:26: Lactate 1.8, Troponin I 0.04 H 11/24/24 05:12: POC Glucose 194 H 11/24/24 06:00: WBC 9.3 D, RBC 4.28, Hgb 12.8, Hct 39.3, MCV 91.8, MCH 29.9, MCHC 32.6, RDW 13.2, Plt Count 308, MPV 9.8, Neut % (Auto) 90.4 H, Lymph % (Auto) 7.3 L, Erie % (Auto) 1.9, Eos % (Auto) 0.0 L, Baso % (Auto) 0.2, Neut # (Auto) 8.4 H, Lymph # (Auto) 0.7, Erie # (Auto) 0.2, Eos # (Auto) 0.0, Baso # (Auto) 0.0, Sodium 139, Potassium 3.6 D, Chloride 107, Carbon Dioxide 30, Anion Gap 5.6, BUN 6 L, Creatinine 0.50 L, Estimated Creat Clear 219, Estimated GFR 130, Est GFR ( Amer) 157 D, Glucose 225 H D, Calcium 8.7, Phosphorus 2.3 L, Total Bilirubin 0.2, AST 54 H D, ALT 49, Alkaline Phosphatase 127 H, Total Protein 6.9, Albumin 3.8 D, Globulin 3.1, Albumin/Globulin Ratio 1.2, Triglycerides 52, Cholesterol 139 L, LDL Cholesterol Direct 65.19 L, VLDL Cholesterol 10, HDL Cholesterol 47, Cholesterol/HDL Ratio 3.0 I & O for Last 24 hours: Intake & Output 11/21/24 11/22/24 11/23/24 11/24/24 23:59 23:59 23:59 23:59 Intake Total 36.739 / 36.739 149.236 / 149.236 Output Total 1450 / 1450 800 / 800 Balance -1413.261 / -1413.261 -650.764 / -650.764 Weight 235 lb 3.732 oz 229 lb 4.492 oz Constitutional Constitutional: no acute distress and cooperative *Routine HEENT Exam Eye: Present PERRL *Routine Respiratory Exam Respiratory: Present CTA bilaterally; Absent accessory muscle use, wheezes or crackles *Routine Cardiovascular Exam Cardiovascular: Present RRR, Normal S1 and Normal S2; Absent murmur, gallop or rubs *Routine Abdominal Exam Abdominal: Present soft; Absent tenderness *Routine Extremities Exam Extremities: Present pulses intact; Absent cyanosis or edema *Routine Skin Exam Skin: Present intact; Absent erythema or wounds *Routine Neurological Exam Neurological: Present alert and oriented X3 Routine Psychiatric Exam Psychiatric: Present cooperative Meds Home Medications and Allergies Home Medications ?Medication ?Instructions ?Recorded ?Confirmed ?Type valsartan 320 mg tablet 320 mg PO DAILY #90 tabs 01/02/24 11/24/24 Rx spironolactone 25 mg tablet 25 mg PO DAILY #90 tabs 03/23/24 11/24/24 Rx minoxidil 2.5 mg tablet 2.5 mg PO DAILY #30 tabs 04/07/24 11/24/24 Rx cariprazine 3 mg capsule (Vraylar) 3 mg PO DAILY #30 caps 05/18/24 11/24/24 Rx hydrochlorothiazide 25 mg tablet 25 mg PO DAILY #30 tabs 01/07/25 06/10/25 Rx bupropion HCl 300 mg 24 hr tablet, 300 mg PO DAILY #30 tabs 07/13/24 11/24/24 Rx extended release aripiprazole 15 mg tablet 15 mg PO HS 11/24/24 11/24/24 History aspirin 81 mg tablet,delayed 81 mg PO DAILY 11/24/24 11/24/24 History release calcium carbonate 600 mg PO DAILY 11/24/24 11/24/24 History glipizide 10 mg tablet, extended 10 mg PO DAILY 11/24/24 11/24/24 History release 24 hr nebivolol 5 mg tablet 5 mg PO DAILY 11/24/24 11/24/24 History polyethylene glycol 3350 17 17 g PO DAILY 11/24/24 11/24/24 History gram/dose oral powder pravastatin 20 mg tablet 20 mg PO HS 11/24/24 11/24/24 History New Prescriptions to Start Prescriptions: Allergies Allergy/AdvReac Type Severity Reaction Status Date / Time No Known Allergies Allergy Verified 10/01/24 07:29 Assessment and Plan *Assessment and plan (1) Flash pulmonary edema: Status: Acute Category: Medical Code(s): J81.0 - Acute pulmonary edema (2) Acute hypoxemic respiratory failure: Status: Acute Category: Medical Code(s): J96.01 - Acute respiratory failure with hypoxia (3) Hypertensive emergency: Status: Acute Category: Medical Code(s): I16.1 - Hypertensive emergency (4) BMI greater than 30: Problem Comment: History of bariatric surgery and currently on Ozempic Status: Chronic Category: Medical Plan Flash pulmonary edema - Historically normal EF, presented with sudden onset severe dyspnea, pulmonary vascular congestion, proBNP 979. - Symptomatically improved post diuresis and with blood pressure control - Could be blood pressure driven but cannot rule out ACS with elevated troponin - Patient agreeable to 2D echo and left heart cath - DC Bumex, resume home dose Aldactone, HCTZ NSTEMI - Sudden onset severe dyspnea on exertion with acute CHF and BP greater than 200 - No known coronary artery disease - Troponin here 0.01, 0.03, 0.04 in setting of blood pressure greater than 200 - EKG heavy artifact, will repeat - ECHO pending - Add ASA, Lovenox, BB, Statin - Pt agreeable to [facility] Hypertensive emergency - Blood pressure greater than 200 systolic with acute CHF and elevated troponin - Questionable compliance with home meds - BP improving significantly with home meds - Continue home meds and BP monitoring DM - well controlled with A1C 6.1 HLD - well controlled with LDL 65 CV summary: Patient significantly improved post diuresis and with blood pressure control. Further plans pending results of echo and left heart cath today. Addendum: Heart cath revealed nonobstructive 30-40% stenosis left main left to medical management. 2D echo shows EF 50%. No further cardiac procedural intervention warranted at this time. Her blood pressures are now very well-controlled here on home medication. She needs aggressive weight loss, close compliance with BP medication and home sleep study but otherwise she is CV stable for DC home. She needs office f/u with us in 2 weeks. CV DC Meds: - Aspirin 81 mg 1 p.o. daily - Change pravastatin 20 mg daily to atorvastatin 80 mg daily - Hydrochlorothiazide 25 mg 1 p.o. daily - Nebivolol 5 mg 1 p.o. daily - Home spironolactone 25 mg 1 p.o. daily - Valsartan 320 mg 1 p.o. daily - Add Farxiga 10mg po daily
--- NOTE | 2024-11-24 13:02 | PC.NURSE ---
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
[2024-11-24] MEDS: 0.9 % SODIUM CHLORIDE 500 ML 25 ML IV (13:18)
[2024-11-24] MEDS: VERAPAMIL 2.5MG/ML 2ML VIAL 2.5 MG IV (13:18)
[2024-11-24] MEDS: LIDOCAINE 1% 10ML MDV 10 ML IJ (13:18)
[2024-11-24] MEDS: HEPARIN 1,000 UNITS/ML 10ML VIAL (CATH LAB) 5000 UNIT IV ×2 (13:19→13:44)
[2024-11-24] MEDS: NITROGLYCERIN 800MCG/8ML SYR (CATH LAB) 800 MCG IA (13:19)
[2024-11-24] MEDS: HEPARIN 1,000 UNITS/500ML NS (CATH LAB) 3000 UNIT IV (13:19)
[2024-11-24] MEDS: diphenhydrAMINE 50MG/ML VIAL 50 MG IV (13:19)
[2024-11-24] MEDS: FENTANYL 100MCG/2ML VIAL 50 MCG IV (13:43)
[2024-11-24] MEDS: MIDAZOLAM HCL 1MG/ML 5ML VIAL 1 MG IV (13:43)
[2024-11-24] MEDS: IOPAMIDOL-370 (76%);100ML BOTTLE 90 ML IV ×2 (14:33→15:01)
[2024-11-24 15:03] LABS: POC Glucose,Bedside 185 (70-110)
[2024-11-24 15:40] LABS: CATHL Activated Clotting Time 277 SEC (74-125)
--- NOTE | 2024-11-24 16:11 | EXP.DC.SUM ---
General Admission date:: 11/23/24 Discharge date: 11/24/24 HPI HPI HPI: 29-year-old female presents emergency department via EMS due to acute onset dyspnea that began today. History unable to be obtained due to respiratory failure and BiPAP. On arrival patient's blood pressure was greater than 200 and patient was in respiratory distress. I started him on nitroprusside and given 40 of IV Lasix. Transthoracic echo performed performed by myself demonstrated poor acoustic windows, but LVEF approximately 35% global hypokinesis, no significant mitral regurgitation, RV poorly visualized, IVC dilated RA pressure 20. Chest x-ray demonstrated cardiomegaly with pulmonary vascular congestion. EKG suggests sinus tachycardia if there is an intensity of the past year, baseline artifact, no ST deviations. labs notable for leukocytosis notable labs including leukocytosis transfusion elevated BNP lactic acidosis transaminitis Patient was transferred to ICU. History independently. Laboratory diagnostic evaluation independently interpreted. Prior records reviewed. Discussed case with ER physician Hospital Course Hospital Course Hospital Course: Ms. Corona is a 49-year-old female who presented with acute respiratory failure secondary to hypertensive emergency and flash pulmonary edema. Admitted for diuresis and cardiology evaluation. Responded well to therapy. Improved to room air by day of discharge. Stable to discharge home with close follow-up as an outpatient. Problems addressed as follows: Hypertensive emergency Type II NSTEMI Acute respiratory failure Flash pulmonary edema -Presented with acute worsening shortness of breath and new oxygen requirement. Initiated on nitroprusside drip and Lasix IV. Had good response with significant diuresis over 2 L during admission. Able to wean oxygen to room air. Severe elevated blood pressure with systolics of 200 likely a culprit in onset of her flash pulmonary edema. Cardiology was consulted to assist with care. Echo obtained. Echo confirms normal ejection fraction and normal systolic function. No signs of CHF. EF 50%. Flash pulmonary edema suspected secondary to volume status and hypertensive emergency. Patient was taken for heart cath which revealed nonobstructing 30-40% stenoses of left main artery. Cardiology recommends continuing medical management. Plan to resume medications as follows including aspirin 81 mg daily, transition to Lipitor 80 mg daily, continue HCTZ 25 mg daily, Nebivolol 5 mg daily, valsartan 320 mg daily, continue home spironolactone 25 mg daily, and will add Farxiga 10 mg daily. Blood pressure better controlled. Follow with cardiology as an outpatient. Diabetes - A1c fairly well-controlled at 6.8. Will continue home regimen for diabetes with Farxiga 10 mg daily and glipizide 10 mg daily. Needs repeat A1c in 3 months. Obesity - Complicates all aspects of care Continue home medications for depression and anxiety. Total time spent on discharge 32 minutes in counseling, documentation, chart review, and direct care with patient. Exam Data for Last 24 hours Vital signs and Labs for Last 24 Hours: Temp Pulse Resp BP Pulse Ox O2 Del Method O2 Flow Rate 98.0 F 88 18 140/66 93 L Room Air 1 11/24/24 14:58 11/24/24 16:05 11/24/24 16:05 11/24/24 16:05 11/24/24 16:05 11/24/24 16:05 11/24/24 13:00 FiO2 40 11/24/24 01:28 Laboratory Results - last 24 hr 11/23/24 19:53: WBC 17.8 H, RBC 4.87, Hgb 14.1, Hct 46.5, MCV 95.5, MCH 29.0, MCHC 30.3 L, RDW 13.4, Plt Count 357, MPV 10.2, Neut % (Auto) 66.7, Lymph % (Auto) 25.7, [place] % (Auto) 3.9, Eos % (Auto) 2.4, Baso % (Auto) 0.8, Neut # (Auto) 11.9 H, Lymph # (Auto) 4.6 H, [place] # (Auto) 0.7, Eos # (Auto) 0.4, Baso # (Auto) 0.1, Sodium 142, Potassium 4.6, Chloride 110 H, Carbon Dioxide 26, Anion Gap 10.6, BUN 5 L, Creatinine 0.60, Estimated GFR 105, Est GFR ( Amer) 128, Glucose 319 H, Calcium 8.7, Total Bilirubin 0.5, AST 144 H, ALT 58, Alkaline Phosphatase 132 H, Troponin I < 0.01, NT-Pro-B Natriuret Pep 979 H, Total Protein 7.7, Albumin 4.4, Globulin 3.3 H, Albumin/Globulin Ratio 1.3 11/23/24 19:55: VBG pH 7.22 L, VBG pCO2 54.9 H, VBG pO2 53.4 H, VBG HCO3 22.1 L, VBG Total CO2 23.8, VBG O2 Saturation 81.4 H, VBG Base Excess -5.6 L, VBG Lactic Acid 2.5 H 11/23/24 23:00: POC Glucose 268 H 11/23/24 23:58: Troponin I 0.03 11/24/24 00:15: Lactate 2.5 H 11/24/24 02:26: Lactate 1.8, Troponin I 0.04 H 11/24/24 05:12: POC Glucose 194 H 11/24/24 06:00: WBC 9.3 D, RBC 4.28, Hgb 12.8, Hct 39.3, MCV 91.8, MCH 29.9, MCHC 32.6, RDW 13.2, Plt Count 308, MPV 9.8, Neut % (Auto) 90.4 H, Lymph % (Auto) 7.3 L, [place] % (Auto) 1.9, Eos % (Auto) 0.0 L, Baso % (Auto) 0.2, Neut # (Auto) 8.4 H, Lymph # (Auto) 0.7, [place] # (Auto) 0.2, Eos # (Auto) 0.0, Baso # (Auto) 0.0, Sodium 139, Potassium 3.6 D, Chloride 107, Carbon Dioxide 30, Anion Gap 5.6, BUN 6 L, Creatinine 0.50 L, Estimated Creat Clear 219, Estimated GFR 130, Est GFR ( Amer) 157 D, Glucose 225 H D, Calcium 8.7, Phosphorus 2.3 L, Total Bilirubin 0.2, AST 54 H D, ALT 49, Alkaline Phosphatase 127 H, Total Protein 6.9, Albumin 3.8 D, Globulin 3.1, Albumin/Globulin Ratio 1.2, Triglycerides 52, Cholesterol 139 L, LDL Cholesterol Direct 65.19 L, VLDL Cholesterol 10, HDL Cholesterol 47, Cholesterol/HDL Ratio 3.0 11/24/24 10:55: POC Glucose 185 H 11/24/24 13:25: Activated Clotting Time 277 H* I & O for Last 24 hours: Intake & Output 11/21/24 11/22/24 11/23/24 11/24/24 23:59 23:59 23:59 23:59 Intake Total 36.739 / 36.739 169.236 / 169.236 Output Total 1450 / 1450 1100 / 1100 Balance -1413.261 / -1413.261 -930.764 / -930.764 Weight 106.7 kg 104 kg Constitutional Constitutional: no acute distress, obese and cooperative *Routine HEENT Exam Eye: Present PERRL *Routine Respiratory Exam Respiratory: Present CTA bilaterally; Absent accessory muscle use, wheezes or crackles *Routine Cardiovascular Exam Cardiovascular: Present RRR, Normal S1 and Normal S2; Absent murmur, gallop or rubs *Routine Abdominal Exam Abdominal: Present soft; Absent tenderness *Routine Rectal Exam Patient deferred: visual exam *Routine Exam Patient deferred: external exam *Routine Extremities Exam Extremities: Present pulses intact; Absent cyanosis or edema *Routine Skin Exam Skin: Present intact; Absent erythema or wounds *Routine Neurological Exam Neurological: Present alert, oriented X3 and moving all extremities; Absent altered mental status Routine Psychiatric Exam Psychiatric: Present cooperative Results Data Completed and Pending Labs on day of discharge: Labs from last 24 hours 11/24/24 11/24/24 11/24/24 13:25 10:55 06:00 WBC 9.3 D RBC 4.28 Hgb 12.8 Hct 39.3 MCV 91.8 MCH 29.9 MCHC 32.6 RDW 13.2 Plt Count 308 MPV 9.8 Neut % (Auto) 90.4 H Lymph % (Auto) 7.3 L [place] % (Auto) 1.9 Eos % (Auto) 0.0 L Baso % (Auto) 0.2 Neut # (Auto) 8.4 H Lymph # (Auto) 0.7 [place] # (Auto) 0.2 Eos # (Auto) 0.0 Baso # (Auto) 0.0 Activated Clotting Time 277 H* VBG pH VBG pCO2 VBG pO2 VBG HCO3 VBG Total CO2 VBG O2 Saturation VBG Base Excess VBG Lactic Acid Sodium 139 Potassium 3.6 D Chloride 107 Carbon Dioxide 30 Anion Gap 5.6 BUN 6 L Creatinine 0.50 L Estimated Creat Clear 219 Estimated GFR 130 Est GFR ( Amer) 157 D Glucose 225 H D POC Glucose 185 H Lactate Calcium 8.7 Phosphorus 2.3 L Total Bilirubin 0.2 AST 54 H D ALT 49 Alkaline Phosphatase 127 H Troponin I NT-Pro-B Natriuret Pep Total Protein 6.9 Albumin 3.8 D Globulin 3.1 Albumin/Globulin Ratio 1.2 Triglycerides 52 Cholesterol 139 L LDL Cholesterol Direct 65.19 L VLDL Cholesterol 10 HDL Cholesterol 47 Cholesterol/HDL Ratio 3.0 11/24/24 11/24/24 11/24/24 05:12 02:26 00:15 WBC RBC Hgb Hct MCV MCH MCHC RDW Plt Count MPV Neut % (Auto) Lymph % (Auto) [place] % (Auto) Eos % (Auto) Baso % (Auto) Neut # (Auto) Lymph # (Auto) [place] # (Auto) Eos # (Auto) Baso # (Auto) Activated Clotting Time VBG pH VBG pCO2 VBG pO2 VBG HCO3 VBG Total CO2 VBG O2 Saturation VBG Base Excess VBG Lactic Acid Sodium Potassium Chloride Carbon Dioxide Anion Gap BUN Creatinine Estimated Creat Clear Estimated GFR Est GFR ( Amer) Glucose POC Glucose 194 H Lactate 1.8 2.5 H Calcium Phosphorus Total Bilirubin AST ALT Alkaline Phosphatase Troponin I 0.04 H NT-Pro-B Natriuret Pep Total Protein Albumin Globulin Albumin/Globulin Ratio Triglycerides Cholesterol LDL Cholesterol Direct VLDL Cholesterol HDL Cholesterol Cholesterol/HDL Ratio 11/23/24 11/23/24 11/23/24 23:58 23:00 19:55 WBC RBC Hgb Hct MCV MCH MCHC RDW Plt Count MPV Neut % (Auto) Lymph % (Auto) [place] % (Auto) Eos % (Auto) Baso % (Auto) Neut # (Auto) Lymph # (Auto) [place] # (Auto) Eos # (Auto) Baso # (Auto) Activated Clotting Time VBG pH 7.22 L VBG pCO2 54.9 H VBG pO2 53.4 H VBG HCO3 22.1 L VBG Total CO2 23.8 VBG O2 Saturation 81.4 H VBG Base Excess -5.6 L VBG Lactic Acid 2.5 H Sodium Potassium Chloride Carbon Dioxide Anion Gap BUN Creatinine Estimated Creat Clear Estimated GFR Est GFR ( Amer) Glucose POC Glucose 268 H Lactate Calcium Phosphorus Total Bilirubin AST ALT Alkaline Phosphatase Troponin I 0.03 NT-Pro-B Natriuret Pep Total Protein Albumin Globulin Albumin/Globulin Ratio Triglycerides Cholesterol LDL Cholesterol Direct VLDL Cholesterol HDL Cholesterol Cholesterol/HDL Ratio 11/23/24 19:53 WBC 17.8 H RBC 4.87 Hgb 14.1 Hct 46.5 MCV 95.5 MCH 29.0 MCHC 30.3 L RDW 13.4 Plt Count 357 MPV 10.2 Neut % (Auto) 66.7 Lymph % (Auto) 25.7 [place] % (Auto) 3.9 Eos % (Auto) 2.4 Baso % (Auto) 0.8 Neut # (Auto) 11.9 H Lymph # (Auto) 4.6 H [place] # (Auto) 0.7 Eos # (Auto) 0.4 Baso # (Auto) 0.1 Activated Clotting Time VBG pH VBG pCO2 VBG pO2 VBG HCO3 VBG Total CO2 VBG O2 Saturation VBG Base Excess VBG Lactic Acid Sodium 142 Potassium 4.6 Chloride 110 H Carbon Dioxide 26 Anion Gap 10.6 BUN 5 L Creatinine 0.60 Estimated Creat Clear Estimated GFR 105 Est GFR ( Amer) 128 Glucose 319 H POC Glucose Lactate Calcium 8.7 Phosphorus Total Bilirubin 0.5 AST 144 H ALT 58 Alkaline Phosphatase 132 H Troponin I < 0.01 NT-Pro-B Natriuret Pep 979 H Total Protein 7.7 Albumin 4.4 Globulin 3.3 H Albumin/Globulin Ratio 1.3 Triglycerides Cholesterol LDL Cholesterol Direct VLDL Cholesterol HDL Cholesterol Cholesterol/HDL Ratio DS: Diagnosis Discharge Diagnosis (1) Flash pulmonary edema: Status: Acute Code(s): J81.0 - Acute pulmonary edema (2) Acute hypoxemic respiratory failure: Status: Acute Code(s): J96.01 - Acute respiratory failure with hypoxia (3) Hypertensive emergency: Status: Acute Code(s): I16.1 - Hypertensive emergency (4) BMI greater than 30: Status: Chronic Problem details: History of bariatric surgery and currently on Ozempic (5) DM2 (diabetes mellitus, type 2): Status: Chronic Code(s): E11.9 - Type 2 diabetes mellitus without complications Qualifiers: Diabetes mellitus long-term insulin use: without long-term use Diabetes mellitus complication status: without complication Qualified Code(s): E11.9 - Type 2 diabetes mellitus without complications (6) Class 2 obesity with body mass index (BMI) of 38.0 to 38.9 in adult: Status: Chronic Code(s): E66.812 - Obesity, class 2; Z68.38 - Body mass index [BMI] 38.0-38.9, adult Qualifiers: Obesity type: unspecified obesity type Serious obesity comorbidity presence: without serious comorbidity Qualified Code(s): E66.9 - Obesity, unspecified; Z68.38 - Body mass index [BMI] 38.0-38.9, adult (7) Anxiety and depression: Status: Chronic Code(s): F41.9 - Anxiety disorder, unspecified; F32.A - Depression, unspecified (8) NSTEMI (non-ST elevated myocardial infarction): Status: Acute Code(s): I21.4 - Non-ST elevation (NSTEMI) myocardial infarction Meds Home Medications and Allergies Home Medications ?Medication ?Instructions ?Recorded ?Confirmed ?Type cariprazine 3 mg capsule (Vraylar) 3 mg PO DAILY #30 caps 05/18/24 11/25/24 Rx bupropion HCl 300 mg 24 hr tablet, 300 mg PO DAILY #30 tabs 07/13/24 11/25/24 Rx extended release aripiprazole 15 mg tablet 15 mg PO HS 11/24/24 11/25/24 History aspirin 81 mg tablet,delayed 81 mg PO DAILY 30 days #30 tabs 11/24/24 11/25/24 Rx release calcium carbonate 600 mg PO DAILY 11/24/24 11/25/24 History glipizide 10 mg tablet, extended 10 mg PO DAILY 11/24/24 11/25/24 History release 24 hr hydrochlorothiazide 25 mg tablet 25 mg PO DAILY #30 tabs 11/24/24 11/25/24 Rx nebivolol 5 mg tablet 5 mg PO DAILY 30 days #30 tabs 11/24/24 11/25/24 Rx polyethylene glycol 3350 17 17 g PO DAILY 11/24/24 11/25/24 History gram/dose oral powder spironolactone 25 mg tablet 25 mg PO DAILY #90 tabs 11/24/24 11/25/24 Rx valsartan 320 mg tablet 320 mg PO DAILY #90 tabs 11/24/24 11/25/24 Rx atorvastatin 80 mg tablet (Lipitor) 80 mg PO HS #30 tabs 11/25/24 11/25/24 Rx cholecalciferol (vitamin D3) 1,250 1,250 mcg PO WEEKLY 11/25/24 11/25/24 History mcg (50,000 unit) capsule dapagliflozin propanediol 10 mg 10 mg PO DAILY 90 days #90 tabs 11/25/24 11/25/24 Rx tablet (Farxiga) omeprazole 40 mg capsule,delayed 40 mg PO DAILY 11/25/24 11/25/24 History release quetiapine 25 mg tablet (Seroquel) 25 mg PO HS 11/25/24 11/25/24 History New Prescriptions to Start Prescriptions: aspirin Suresh,Mesfin hydrochlorothiazide Suresh,Mesfin nebivolol Suresh,Mesfin spironolactone Suresh,Mesfin valsartan Suresh,Mesfin Allergies Allergy/AdvReac Type Severity Reaction Status Date / Time No Known Allergies Allergy Verified 11/25/24 10:50 Discharge Plan Disposition Patient Disposition: Home, Self-Care Condition: Fair Discharge Order Discharge Orders: Discharge Order (Routine); Ordered 11/24/24 Ordered By: Mesfin Prince Follow up Plan Follow up with: Ирина Urena APRN [Nurse Practitioner, Family Practice] - 11/25/24 10:40 am Paulo Vieyra MD [Staff Physician, Cardiology] - 12/01/24 1:30 pm Prescriptions/Medication Reconciliation: Continued Vraylar 3 mg capsule 3 mg PO DAILY Qty: 30 2RF bupropion HCl 300 mg tablet extended release 24 hr 300 mg PO DAILY Qty: 30 2RF glipizide 10 mg tablet extended release 24hr 10 mg PO DAILY calcium carbonate 600 mg calcium (1,500 mg) tablet 600 mg PO DAILY polyethylene glycol 3350 17 gram/dose powder 17 g PO DAILY aripiprazole 15 mg tablet 15 mg PO HS spironolactone 25 mg tablet 25 mg PO DAILY Qty: 90 0RF valsartan 320 mg tablet 320 mg PO DAILY Qty: 90 0RF hydrochlorothiazide 25 mg tablet 25 mg PO DAILY Qty: 30 0RF Changed aspirin 81 mg tablet,delayed release (DR/EC) 81 mg PO DAILY 30 Days Qty: 30 0RF nebivolol 5 mg tablet 5 mg PO DAILY 30 Days Qty: 30 0RF Discontinued minoxidil 2.5 mg tablet 2.5 mg PO DAILY Qty: 30 2RF pravastatin 20 mg tablet 20 mg PO HS No Action quetiapine [Seroquel] 25 mg tablet 25 mg PO HS omeprazole 40 mg capsule,delayed release(DR/EC) 40 mg PO DAILY cholecalciferol (vitamin D3) 1,250 mcg (50,000 unit) capsule 1,250 mcg PO WEEKLY atorvastatin [Lipitor] 80 mg tablet 80 mg PO HS Qty: 30 2RF dapagliflozin propanediol [Farxiga] 10 mg tablet 10 mg PO DAILY 90 Days Qty: 90 0RF Problem Reconciliation Problems Reviewed?: Yes Patient Discharge Instructions ACTIVITY: Continue current activity DIET: continue same diet Patient Instructions: DI for Respiratory Failure, DI for Hypoxia, Respiratory Failure, Stop Light Heart Failure Print Language: Tongan Providers Primary Care Provider: Provider,Referral Admit Provider: Mesfin Prince Attending Provider: Mesfin Prince
[2024-11-24 16:41] LABS: POC Glucose,Bedside 262 (70-110)
--- NOTE | 2024-11-25 11:04 | SW/DCPLANNER ---
Spoke with patient on the phone. Patient stated that she is good. Patient stated that she is at her DR appointment. Patient stated that she is aware of her upcoming appointments. Patient stated that she was able to get her new medicine picked up from clinic pharmacy. Patient stated that she has no concerns or questions at this time. [facility]
== END 2024-11-24 18:05 | disposition home or self-care (01) | DRG 280 ==
LOC: ER 21:23 → ICU 11-24 00:15
PROVIDERS: Internal Medicine; Student in an Organized Health Care Education/Training Program; Admitting Provider Internal Medicine Adolescent Medicine; Emergency Provider Student in an Organized Health Care Education/Training Program; Visit Provider Internal Medicine Adolescent Medicine
PROC: 4A023N7 Measurement of Cardiac Sampling and Pressure, Left Heart, Percutaneous Approach (ICD-10-PCS; CPT 93452; principal; 2024-11-24 13:30)
PROC: 4A023N7 Measurement of Cardiac Sampling and Pressure, Left Heart, Percutaneous Approach (ICD-10-PCS; 2024-11-24 13:30)
DX: I16.1 Hypertensive emergency (principal); J81.0 Acute pulmonary edema; I21.A1 Myocardial infarction type 2; J96.01 Acute respiratory failure with hypoxia; E87.20 Acidosis, unspecified; E11.9 Type 2 diabetes mellitus without complications; Z68.34 Body mass index [BMI] 34.0-34.9, adult; F41.9 Anxiety disorder, unspecified; F32.A Depression, unspecified; E66.812 Obesity, class 2; G47.33 Obstructive sleep apnea (adult) (pediatric); F17.290 Nicotine dependence, other tobacco product, uncomplicated; E78.5 Hyperlipidemia, unspecified; Z98.84 Bariatric surgery status; Z79.82 Long term (current) use of aspirin; Z79.85 Long-term (current) use of injectable non-insulin antidiabetic drugs; Z79.84 Long term (current) use of oral hypoglycemic drugs; Z79.899 Other long term (current) drug therapy
CPT/HCPCS: 36415; 71045; 80053; 80061; 82803; 82962; 83605; 83880; 84100; 84484; 85025; 85347; 87081; 93005; 93306; 99152; C1725; C1769; J1200; J1644; J1938; J2250; J3010; J7060; Q9957; Q9967

== ENCOUNTER 2024-11-25 09:16 | Outpatient (CLI) | payer MEDICAID, SELFPAY ==
[2024-11-25 18:38] LABS: Basophils # 0.1 K/mm3 (0-0.2); Basophils % 0.7 % (0.1-2.0); Eosinophils # 0.1 Kmm3 (0.0-0.4); Eosinophils % 1.2 % (0.1-12.0); Hematocrit 43.1 % (37.0-47.0); Hemoglobin 14.1 g/dL (12.2-16.2); Immature Granulocytes # 0.03 10^3uL; Immature Granulocytes % 0.3 %; Lymphocytes # 2.9 K/mm3 (0.7-4.5); Lymphocytes % 25.2 % (10-50); Mean Corpuscular HGB Conc 32.7 g/dL (31.8-35.4); Mean Corpuscular Hemoglobin 30.2 pg (27.0-31.2); Mean Corpuscular Volume 92.3 fl (81-99); Mean Platelet Volume 10.5 fl (7.4-10.4); Monocytes # 0.6 K/mm3 (0.1-1.0); Monocytes % 5.4 % (1.7-9.3); Neutrophils # 7.6 K/mm3 (1.8-7.8); Neutrophils % 67.2 % (37.0-80.0); Nucleated Red Blood Cells # 0 10^3/uL; Nucleated Red Blood Cells % 0 %; Platelet Count 339 K/mm3 (142-424); Red Blood Count 4.67 M/mm3 (4.20-5.40); Red Cell Distribution Width 13.3 % (11.5-17.5); Red Cell Distribution Width-SD 45.5 fL; White Blood Count 11.3 K/mm3 (4.8-10.8)
[2024-11-25 19:02] LABS: Alanine Aminotransferase 39 U/L (12-78); Albumin Level 4.4 g/dl (3.5-5.0); Albumin/Globulin Ratio 1.3 (1.1-1.8); Alkaline Phosphatase 115 U/L (38-126); Anion Gap 7.7 mEq/L (5-15); Aspartate Amino Transferase 44 U/L (14-36); Bilirubin,Total 0.5 mg/dl (0.2-1.3); Blood Urea Nitrogen 12 mg/dl (7-17); Calcium 10.6 mg/dl (8.4-10.2); Carbon Dioxide 33 mmol/L (22.0-30.0); Chloride 100 mmol/L (98-107); Estimated Glomerular Filt Rate 105 ml/min (>60); GFR (African American) 128 ML/MIN (>60); Globulin 3.3 g/dL (1.3-3.2); Glucose 137 mg/dl (74-100); Potassium 3.7 mmoL/L (3.5-5.1); Sodium 137 mmol/L (136-145); Total Protein,Serum 7.7 g/dl (6.3-8.2)
[2024-11-25 20:04] LABS: Hemoglobin A1C 6.8 % (4.0-6.0)
== END 2024-11-25 23:59 | disposition home or self-care (01) ==
LOC: LAB.DROPOF 11-26 09:17
PROVIDERS: PCP Family Medicine; Visit Provider Family Medicine
DX: E11.9 Type 2 diabetes mellitus without complications (principal)
CPT/HCPCS: 80053; 83036; 85025